=== PATIENT | male | born 1985 | race Hispanic/Latino ===

== ENCOUNTER 2018-08-10 01:24 | Observation (INO) | payer BC, SELFPAY ==
[2018-08-10 02:13] LABS: #Eosinphils 0.1 thou/uL (0.0-0.7); #Lymphocytes 2.8 thou/uL (1.20-3.40); #Monocytes 0.5 thou/uL (0.11-0.59); #Neutrophils 4.2 thou/uL (1.40-6.50); %Basophils 0.5 % (0.0-1.0); %Eosinophils 1.2 % (0.0-10.0); %Lymphocytes 36.8 % (21.0-51.0); %Monocytes 6.6 % (0.0-10.0); %Neutrophils 54.8 % (42.0-75.0); Hemoglobin 15.6 g/dL (14.0-18.0); Mean Corpuscular HGB CONC 34.7 g/dL (32.0-36.0); Mean Corpuscular Hemoglobin 28.9 pg (27.0-31.0); Mean Corpuscular Volume 83.2 fL (78.0-98.0); Mean Platelet Volume 6.9 fL (7.4-10.4); Platelet Count 336 thou/uL (130-400); Red Blood Cell (RBC) Count 5.41 mill/uL (4.70-6.10); White Blood Cell (WBC) Count 7.6 thou/uL (4.8-10.8)
[2018-08-10 02:31] LABS: ALT (SGPT) 68 U/L (8-55); AST (SGOT) 39 U/L (5-34); Albumin 4.6 g/dL (3.5-5.0); Alkaline Phosphatase 56 U/L (40-150); Bilirubin, Direct 0.3 mg/dL (0.1-0.3); Bilirubin, Total 0.8 mg/dL (0.2-1.2); Protein, Total 8.9 g/dL (6.0-8.3)
[2018-08-10 02:32] LABS: ALT (SGPT) 68 U/L (8-55); AST (SGOT) 39 U/L (5-34); Albumin 4.6 g/dL (3.5-5.0); Alkaline Phosphatase 57 U/L (40-150); Anion Gap 14 mmol/L (10-20); BUN (Urea Nitrogen) 18 mg/dL (8.9-20.6); Bilirubin, Total 0.8 mg/dL (0.2-1.2); Calc. Creatinine Clearance 0 mL/min (70-130); Calcium 10.2 mg/dL (7.8-10.44); Carbon Dioxide 25 mmol/L (22-29); Chloride 98 mmol/L (98-107); Estimated GFR-MDRD Greater than 90; Globulin 4.3 g/dL (2.4-3.5); Glucose 224 mg/dL (70-105); Protein, Total 8.9 g/dL (6.0-8.3); Sodium 133 mmol/L (136-145)
[2018-08-10 02:37] LABS: CKMB 0.5 ng/mL (0-6.6); Troponin I Less than 0.010 ng/mL (< 0.028)
[2018-08-10] MEDS ORDERED: Lidocaine Viscous Sol 2% 15 ml UD Cup ONE (02:38)
[2018-08-10] MEDS ORDERED: Mag-Al 1200 mg/1200 mg/30 ML UDCUP ONE (02:38)
[2018-08-10] MEDS ORDERED: Pantoprazole 40 MG VIAL ONE (02:38)
[2018-08-10 03:32] LABS: Acetaminophen Less than 6.0 mcg/mL (10.0-30.0); Alcohol Less than 10 mg/dL (Less than 10); Salicylate Less than 8.0 mg/dL (15.0-30.0)
[2018-08-10 05:32] LABS: Troponin I Less than 0.010 ng/mL (< 0.028)
[2018-08-10] MEDS ORDERED: Ketorolac Tromethamine 30 MG/ML VIAL ONE (06:06)
[2018-08-10] MEDS ORDERED: Iopamidol 300 61% 100 ML VIAL FS ONE (08:03)
[2018-08-10] MEDS ORDERED: HumaLOG 300 UNITS/3 ML VIAL SC PRN (11:14)
[2018-08-10] MEDS ORDERED: Nitroglycerin 0.4 MG TAB (25 Tab Bottle) SL PRN (11:14)
[2018-08-10] MEDS ORDERED: Dextrose 5% in Water 1,000 ML IV PRN (11:14)
[2018-08-10] MEDS ORDERED: Dextrose 50% Abboject 50 ML SYRINGE IVP PRN (11:14)
--- NOTE | 2018-08-10 11:23 | HP ---
PRIMARY CARE PROVIDER: Dr. David Mao in [place], [place] at [facility]. CHIEF COMPLAINT: Chest pain. HISTORY OF PRESENT ILLNESS: Mr. Dowling is a pleasant 33-year-old gentleman who was seen at [facility] on 08/10/2018. He reports that over the last week, he has had chest pain. He describes it as across his chest, henok p, 10/10 at its worst, accompanied by shortness of breath, also worse with deep breathing, not accomp anied by nausea, vomiting or lightheadedness. He denies having previous episodes of chest pain. He denies any cough, fevers or chills. He came to the emergency room because of ongoing chest pain. Please note that computer systems are down at the hospital at this time and I am unable to access mos t of his labs and old medical records. REVIEW OF SYSTEMS: All other systems reviewed and found to be negative. PAST MEDICAL HISTORY: Diabetes mellitus type 1, HIV infection, hypertension, syphilis, cirrhosis, an d hepatitis C. PAST SURGICAL HISTORY: Appendectomy. SOCIAL HISTORY: No history of tobacco use, alcohol use or recreational drug use. FAMILY HISTORY: Coronary artery disease in his mother. ALLERGIES: No known drug allergies. CURRENT MEDICATIONS: Doses need to be clarified, but these include Zetia, amlodipine, gabapentin, an d antiretroviral medications. PHYSICAL EXAMINATION: GENERAL: On examination, Mr. Dowling is awake and alert, not in acute distress. VITAL SIGNS: He is afebrile. Blood pressure is 119/69, pulse 84, respiratory rate 18, and oxygen sa turation 97% on room air. EYES: No scleral icterus. No conjunctival pallor. ENT: Moist mucosal membranes, no oropharyngeal erythema or exudates. NECK: Supple, nontender, trachea is midline. RESPIRATORY: Accessory muscles of breathing are not active. Chest wall movements are symmetric bila terally. LUNGS: Clear to auscultation without wheeze, rhonchi or crepitations. CARDIOVASCULAR: S1 and S2 are heard, regular. Peripheral pulses are palpable. No carotid bruit, no pericardial rub. ABDOMEN: Soft, nontender, bowel sounds heard, no hepatomegaly, no splenomegaly. NEUROLOGIC: Cranial nerves II-XII intact. Deep tendon reflexes are 2+. MUSCULOSKELETAL: Power is 5/5 in all 4 extremities. SKIN: Multiple tattoos. LYMPHATIC: No cervical lymphadenopathy. PSYCHIATRIC: Normal mood, normal affect. The patient is oriented to person, place, and time. IMAGING DATA AND LABORATORY DATA: Mr. Dowling's labs and investigations were reviewed. He had an elliott ctrocardiogram, which showed normal sinus rhythm, no ST changes to suggest an acute coronary syndrome . He also had a chest x-ray, which I am unable to access at this time. He reportedly had a negative troponin I, AST 39, ALT 68. The remaining labs are not available at this time. He also had right u pper quadrant ultrasound, which showed moderate hydronephrosis of the lower half of the left kidney. He also had noncontrast CT scan of abdomen and pelvis, which showed moderate hydronephrosis and hydr oureter on the right. He also had rectal thickening, radiologist recommends a clinical correlation. Radiologist also recommends follow up with contrast material if indicated. ASSESSMENT AND PLAN: Mr. Dowling is a pleasant 33-year-old gentleman who was seen at [facility] on 08/10/2018. His problem list includes: 1. Chest pain: Etiology unclear at this time, he is currently awaiting a nuclear stress test. We w ill also check D-dimer to rule out pulmonary embolism. Further management depending on outcome of th is test. 2. Hydronephrosis: We will consult Urology Service for opinion and help with further management. 3. Human immunodeficiency virus infection: We will resume retroviral medications once clarified. 4. Diabetes mellitus type 1: We will continue insulin and start Accu-Cheks as well as insulin slidi ng scale. 5. Hypertension: We will monitor vital signs and titrate antihypertensives as needed. 6. Rectal thickening: We will consult GI Service for opinion. Many thanks for allowing me to participate in your patient's care. Please feel free to contact me wi th any questions or concerns. LEVEL OF RISK: Moderate. LEVEL OF COMPLEXITY: Moderate.
--- NOTE | 2018-08-10 11:42 | ULT ---
PRELIMINARY REPORT/[facility]/EMERGENTY AFTER-HOURS PROCEDURE US Abdomen Limited, Right Upper Quadrant EXAM DATE/TIME: 08/10/2018 3:21 AM CLINICAL HISTORY: 33 years old, male; Pain and signs and symptoms; Other: Lower back pain, difficulty urinating; Abdomi nal pain; Other: Epigastric and lower back pain TECHNIQUE: Real-time ultrasound of the abdomen with image documentation. Examination is focused on the right upper quadrant. COMPARISON: No relevant prior studies available. FINDINGS: Liver: Normal. No masses. Gallbladder: Normal contracted gallbladder. Common bile duct: Normal. No stones. No dilation. Pancreas: Visualized pancreas is unremarkable. Right kidney: Normal. No mass. No hydronephrosis. Left kidney: Moderate hydronephrosis of the lower half of the left kidney. IMPRESSION: Moderate hydronephrosis of the lower half of the left kidney. Thank you for allowing us to participate in the care of your patient. Dictated and Authenticated by: Ian Perez MD 08/10/2018 4:33 AM Central Time ([place] & [place]) GALLBLADDER ULTRASOUND: History: Epigastric pain. Elevated LFTs. Comparison: 06-06-16 FINDINGS: This report is in agreement with the preliminary report by [facility]. There is moderate right sided hydrone phrosis. Gallbladder is contracted. No evidence of cholelithiasis or cholecystitis. POS: [facility]
--- NOTE | 2018-08-10 11:44 | CT ---
PRELIMINARY REPORT/[facility]/EMERGENTY AFTER-HOURS PROCEDURE CT Abdomen and Pelvis Without Intravenous Contrast EXAM DATE/TIME: 08/10/2018 5:42 AM CLINICAL HISTORY: 33 years old, male; Pain; Other: Back pain; Patient HX: Er 2; PT reports back pain for the past 2-3 d ays. Eval for left hydronephrosis. TECHNIQUE: Axial computed tomography images of the abdomen and pelvis without intravenous contrast. Coronal reformatted images were created and reviewed. COMPARISON: US Gallbladder RUQ 08/10/2018 3:21 AM FINDINGS: Lower thorax: Subtle atelectasis right lung base with a somewhat nodular configuration. Consider foll owup. ABDOMEN: Liver: Normal. No mass. Gallbladder and bile ducts: Normal. No calcified stones. No ductal dilation. Pancreas: Normal. No ductal dilation. Spleen: Normal. No splenomegaly. Adrenals: Normal. No mass. Kidneys and ureters: Moderate hydronephrosis and hydroureter on the right. Suspected partially duplic ated collecting system. Possible tiny calculus at the right ureterovesical junction. See image #90 se parminder 601 and image #75 series 2. Stomach and bowel: Thickening of the rectum. Correlate clinically. -Moderate amount stool is present throughout the large bowel. Appendix: The appendix is not visualized. PELVIS: Bladder: Unremarkable as visualized. Reproductive: Unremarkable as visualized. ABDOMEN and PELVIS: Intraperitoneal space: Normal. No free air. No significant fluid collection. Bones/joints: No acute fracture. No dislocation. Soft tissues: Unremarkable. Vasculature: Normal. No abdominal aortic aneurysm. Lymph nodes: Numerous small subcentimeter lymph nodes in the aortocaval region IMPRESSION: 1. Moderate hydronephrosis and hydroureter on the right. Suspected partially duplicated collecting sy stem. Possible tiny calculus at the right ureterovesical junction.See image #90 series 601 and image #75 series 2. 2. Thickening of the rectum. Correlate clinically. Consider followup with contrast material if indica rickie. Thank you for allowing us to participate in the care of your patient. Dictated and Authenticated by: Zach Zhao MD 08/10/2018 6:37 AM Central Time ([place] & [place]) ABDOMEN CT WITHOUT CONTRAST: PELVIS CT WITHOUT CONTRAST: HISTORY: Left-sided hydronephrosis. Back pain for two to three days. COMPARISON: 06/04/2018 TECHNIQUE: Abdomen and pelvis CT is performed without IV or oral contrast. Reformatted images are submitted for interpretation. FINDINGS: There is no evidence of left-sided obstructive uropathy. However, there is moderate right-sided hydr onephrosis and hydroureter. 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 A definite obstruc ting calculus is not appreciated. The possibility of a punctate calculus in the right ureterovesical junction is reported in the preliminary report by [facility]. Evaluation is somewhat limited in this regio n due to beam attenuation. Of note, the previous CT also had right-sided hydronephrosis. The right ureter was decompressed previously. A retrograde IVP is recommended. There is mucosal thickening of the rectum. Direct visualization with sigmoidoscopy/colonoscopy is recommended. This report is in agreement with the preliminary report by [facility]. POS: [facility]
[2018-08-10 12:01] LABS: Amphetamine Not Detected (NotDetected); Barbiturates Screen Not Detected (NotDetected); Benzodiazepine Screen Not Detected (NotDetected); Cocaine Metabolite Screen Not Detected (NotDetected); Medtox Control Line Valid? VALID (VALID); Medtox Reader # READER 1; Methadone Not Detected (NotDetected); Methamphetamine Not Detected (NotDetected); Opiate Screen Not Detected (NotDetected); Oxycodone Screen Not Detected (NotDetected); Phencyclidine (PCP) Not Detected (NotDetected); THC/Cannabinoid Screen Not Detected (NotDetected); Tricyclic Screen Not Detected (NotDetected)
[2018-08-10 12:12] LABS: Troponin I Less than 0.010 ng/mL (< 0.028)
[2018-08-10] MEDS: Sodium Chloride 0.9% 1,000 ML IV SCH ×2 (12:39→23:22)
[2018-08-10 12:59] LABS: #Monocytes 0.6 thou/uL (0.11-0.59); #Neutrophils 6.2 thou/uL (1.40-6.50); %Basophils 0.4 % (0.0-1.0); %Eosinophils 0.3 % (0.0-10.0); %Lymphocytes 30.5 % (21.0-51.0); %Monocytes 5.8 % (0.0-10.0); Hemoglobin 15.5 g/dL (14.0-18.0); Mean Corpuscular HGB CONC 36.1 g/dL (32.0-36.0); Mean Corpuscular Hemoglobin 30.2 pg (27.0-31.0); Mean Corpuscular Volume 83.7 fL (78.0-98.0); Platelet Count 343 thou/uL (130-400); RBC Distribution Width 12.1 % (11.5-14.5); Red Blood Cell (RBC) Count 5.12 mill/uL (4.70-6.10); White Blood Cell (WBC) Count 9.9 thou/uL (4.8-10.8)
[2018-08-10 13:12] LABS: Glucose Accucheck Confirmation 83 mg/dl (70-105)
[2018-08-10 13:19] LABS: Anion Gap 13 mmol/L (10-20); BUN (Urea Nitrogen) 15 mg/dL (8.9-20.6); Calc. Creatinine Clearance 0 mL/min (70-130); Calcium 9.6 mg/dL (7.8-10.44); Carbon Dioxide 25 mmol/L (22-29); Chloride 103 mmol/L (98-107); Estimated GFR-MDRD Greater than 90; Glucose 82 mg/dL (70-105); Potassium 3.2 mmol/L (3.5-5.1); Sodium 138 mmol/L (136-145)
[2018-08-10 13:28] VITALS: BMI 23.6
--- NOTE | 2018-08-10 13:40 | CON ---
DATE OF CONSULTATION: 08/10/2018 REASON FOR CONSULT: Right hydronephrosis. HISTORY OF PRESENT ILLNESS: Mr. Dowling is a 33-year-old male with history of HIV, remote history of syphilis, hepatitis C, liver cirrhosis who presented for evaluation of chest pain, sharp, radiating to his upper back with shortness of breath. He also related vague epigastric discomfort. He denies prior history of flank pain, dysuria or gross hematuria of concern. Relates occasional hesitancy. Upon my request, we did check and for a postvoid residual. He voided approximately 400-500 mL of concentrated yellow urine, postvoid residual is 0. CT of the abdomen and pelvis was obtained by primary service on presentation without IV contrast dating 08/10/2018 demonstrating moderate right hydronephrosis with duplicated ureter. The hydronephrotic component appears to be chronic in nature as it was visualized on a lumbar x-ray dating back a few years. He did have a prior CT scan dated 2015 which demonstrated right hydronephrosis. However, the ureter itself was not significantly distended. The patient denies history of kidney stones. Upon our consultation today he related that of vague right lower back pain began today. Denies a fever. PAST MEDICAL HISTORY: Include diabetes, HIV, hypertension, history of syphilis , cirrhosis, hepatitis C. PAST SURGICAL HISTORY: Appendectomy. 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 FAMILY HISTORY: Positive for coronary artery disease. ALLERGIES: No known drug allergies. HOME MEDICATIONS: Include Zytiga, amlodipine, gabapentin, and antiviral medications. He has previously seen Dr. Rubio, Infectious disease. PHYSICAL EXAMINATION: VITAL SIGNS: Stable. He is afebrile. GENERAL: The patient appears to be comfortable. HEENT: Grossly unremarkable. HEART: Regular rate. LUNGS: Clear. ABDOMEN: Soft. There is no gross rigidity, no rebound. No significant CVA tenderness is appreciated on physical exam. GENITOURINARY: Demonstrates circumcised phallus, meatus with no discharge. Testes are descended with no evidence of intratesticular mass. RECTAL: LAURY is deferred. EXTREMITIES: No cyanosis, clubbing or edema. Skin has multiple skin tattoos. PERTINENT LABS AND IMAGING: White count 7, hemoglobin 15, platelets 236, creatinine 0.9. Elevated liver function tests. Urine tox screen is grossly unremarkable. A formal urinalysis and culture was not obtained on this admission. CT of the abdomen and pelvis dated 05/2016 demonstrates dilation of the right lower pole collecting system, duplicated right ureter. Mild periaortic aortocaval lymphadenopathy not pathologically enlarged. The CT was compared to CT of the lumbar spine in 2010 demonstrating a similar right dilation of the collecting system. CT stone protocol 08/10/2018 demonstrates moderate hydronephrosis with hydroureter on the right. Partially duplicated right collecting system. I did review the CT myself demonstrating duplicated ureter dilated to the level of the mid SI joint. Bladder is distended up to this region, distal ureter is difficult to visualize. Possibility of a tiny calculus at the right UVJ, however, formal read by Dr. Jean Marie Reeves demonstrates no obvious definitive stone is appreciated. Mucosal thickening of the rectum. Colonoscopy was advised. IMPRESSION/PLAN: 1. Mr. Dowling is a 33-year-old male, Liberian speaking, with history of hepatitis C, HIV, syphilis, diabetes who presents with vague discomfort of chest pain, epigastric discomfort, new complaint on consultation of right lower back pain. 2. CT demonstrating chronically dilated right collecting system, dating back to 2010, recent CT demonstrates a component of dilated ureters as well. Etiology is unclear. We did check a postvoid residual at bedside. The patient is not in retention. PVR zero. A formal urinalysis microscopy will be obtained. I will obtain a followup IVP. Pending review of IVP I discussed with patient regarding cystoscopy, retrograde studies, possible stent if indicated. MTDD
[2018-08-10] MEDS ORDERED: Dextrose 50% Abboject 50 ML SYRINGE ONE (14:06)
--- NOTE | 2018-08-10 15:59 | RAD ---
IVP: 08/10/18 HISTORY: Duplicated ureters. Hydronephrosis. COMPARISON: CT exam from 06/06/16. FINDINGS: Accounting Practice Manager KUB shows a nonspecific bowel gas pattern. Phleboliths project over the pelvis. Early images show bilateral and symmetric nephrograms. There is duplication of each renal collecting system and the proximal left ureter and the proximal to mid right ureter. Right ureters join at the l evel of the lower sacrum. There is moderate distention of the calyces of the inferior pole right renal collecting system. The a ssociated renal pelvis is not significantly dilated. Ureter is decompressed. Left renal collecting s ystem, ureter and urinary bladder are unremarkable. Postvoid residual is minimal. IMPRESSION: 1. Partial duplication of each ureter. 2. Caliectasis inferior pole right renal collecting system. Cause is not evident. There is no si gnificant obstruction. Findings were called to Dr. Avelar at 1525 hours. Code CR POS: [facility]
[2018-08-10] MEDS ORDERED: Gabapentin 300 MG CAP PO PRN (18:17)
[2018-08-10] MEDS: Acetaminophen 325 MG TAB PO PRN (18:32)
[2018-08-10 19:26] LABS: Bilirubin Negative (Negative); Blood, Urine Negative (Negative); Clarity CLEAR (Clear); Glucose, Urine (Dipstick) 250 mg/dL (Negative); Leukocyte Negative (Negative); Nitrite Negative (Negative); Protein, Urine (Dipstick) Trace mg/dL (Neg-Trace); pH, Urine 5.5 (5.0-9.0)
[2018-08-10 19:27] LABS: Bacteria/HPF None Seen HPF (None Seen); Hyaline Casts/LPF 0-3 HYALINE CAST LPF (0-3 Hyaline); Pathc Cast-AUWi Flag 0.14 (0-2.49); RBC/HPF 0-3 HPF (0-3); Squamous Epithelial None Seen HPF (0-3); WBC/HPF 0-3 HPF (0-3)
[2018-08-10 19:28] LABS: Specific Gravity, Urine Greater than 1.060 (1.002-1.036)
[2018-08-10] MEDS: Insulin NPH/Reg Insulin Hm 300 UNITS/3 ML VIAL SC SCH (20:00)
[2018-08-10] MEDS ORDERED: Insulin Glargine 75 UNITS in Pre-Filled Syringe 1 EACH SC SCH (21:00)
[2018-08-11] MEDS: Insulin NPH/Reg Insulin Hm 300 UNITS/3 ML VIAL SC SCH ×2 (00:19→08:23)
--- NOTE | 2018-08-11 01:57 | CON ---
DATE OF CONSULTATION: 08/10/2018 REFERRING PHYSICIAN: Dr. Darrius Barreto. REASON FOR CONSULTATION: Abdominal pain and abnormal CAT scan of abdomen showing thickening of the r ectal wall. HISTORY OF PRESENT ILLNESS: Mr. Nj Dowling is a 33-year-old Latin-S[place]i male seen in the ER wi th abdominal pain. Apparently, he has been having abdominal pain over the last several days. The pa in has actually come across the upper abdomen and EPS periumbilical area. The patient came to the ER and had abdominal CAT scan. Abdominal CAT scan showed mild hydronephrosis on both sides and also th ickening of the rectal vault. Interestingly, he has no GI symptoms. His pain is somewhat atypical. He denies any rectal bleeding, diarrhea. His bowel movements are regular. He denies any dysuria, h ematuria or frequent urination. The patient has no nausea, no vomiting. There is no history fever o r chills. The patient has a history of positive HIV and has seen a doctor in [place]. He also has p ositive HCV and is planning to take treatment for the hepatitis C. The patient is homosexual. The p atient also has history of type 2 diabetes mellitus and hypertension. He has been told to have liver cirrhosis by a Doctor in [place] sometime back. He is drinking alcohol heavily, but he has quit dri nking alcohol 1 year ago completely. He has no history of drug use. He has no relevant history. ALLERGIES: None. SOCIAL HISTORY: The patient does not smoke. He is drinking alcohol until 1 year ago and he stopped drinking completely because of his liver cirrhosis. SURGERIES: Status post appendectomy. FAMILY HISTORY: Father colon cancer, metastatic lung cancer. Mother with coronary artery disease. MEDICATIONS: Zetia, amlodipine, gabapentin, antiviral medication for HIV. REVIEW OF SYSTEMS: Constitutional: No fever, no weight loss. His energy level is good. Respirator y: No history of chronic cough, hemoptysis, dyspnea. Cardiovascular: No chest pain, no palpitation , no exertional dyspnea, orthopnea or PND. Gastrointestinal: Abdominal pain, no nausea, no vomiting , no fever, no diarrhea, no rectal bleeding. Genitourinary: No other relevant symptoms. Musculoske letal: Unremarkable. Endocrine: Unremarkable. Hematological: Unremarkable. PHYSICAL EXAMINATION: GENERAL: Patient is thin built, appears very comfortable. He is awake, alert, oriented to time, francisco ce and person. VITAL SIGNS: Stable. Afebrile, pulse 81, blood pressure 124/66. HEENT: Conjunctivae clear. NECK: Supple. No adenitis or thyromegaly noted. CARDIOVASCULAR: First and second heart sounds normal. LUNGS: Clear to auscultation. ABDOMEN: Soft to palpate. No organomegaly. He is minimally tender over the epigastric periumbilica l area. There is no rebound or guarding. Bowel sounds normal. EXTREMITIES: No edema. LABORATORY DATA: CBC shows WBC 9900, hemoglobin 15.5, hematocrit 42.8, platelet count is 343,000, po lymorphs 63, lymphocytes 30, monocytes 5. His chemistry panel, electrolytes are normal except for po tassium 3.2, calcium is 9.6. He has an abdominal sonogram and abdominal CAT scan. The sonogram show s moderate hydronephrosis of the left kidney. No kidney stones seen. He has abdominal sonogram subs equently. The sonogram again shows mild hydronephrosis on the right side also found to have thickeni ng of the rectal wall. IVP done subsequently. The IVP shows duplication of the collecting sys tem and proximal left ureter and proximal right ureter. There is moderate distention of the callus o f the right lower renal pole. CLINICAL IMPRESSION: A 33-year-old male with positive human immunodeficiency virus, positive hepatit is C virus, presents with some abdominal pain and was found to have abnormal sonogram and CAT scan sh owing dilation of the left ureter. He has seen by Dr. Avelar for urology. When I spoke to him about his thickening rectal vault, he was not very happy to really have anything done. He says he f eels fine and had no rectal bleeding, no diarrhea and bowels are regular. At the present time, I jose g l defer any workup as he has no specific symptoms and thickening of rectal wall is very nonspec ific. He is awaiting urology evaluation. PLAN: I will see him again tomorrow and if he is agreeable, I might recommend a sigmoidoscopy.
[2018-08-11] MEDS: Sodium Chloride 0.9% 1,000 ML IV SCH ×2 (05:56→12:27)
[2018-08-11 06:00] LABS: Anion Gap 10 mmol/L (10-20); BUN (Urea Nitrogen) 13 mg/dL (8.9-20.6); Calc. Creatinine Clearance 153 mL/min (70-130); Calcium 9.2 mg/dL (7.8-10.44); Carbon Dioxide 27 mmol/L (22-29); Chloride 107 mmol/L (98-107); Estimated GFR-MDRD Greater than 90; Glucose 137 mg/dL (70-105); Potassium 3.9 mmol/L (3.5-5.1); Sodium 140 mmol/L (136-145)
[2018-08-11] MEDS: Acetaminophen 325 MG TAB PO PRN (06:01)
[2018-08-11] MEDS ORDERED: Iopamidol 370 76% 100 ML VIAL ONE (08:11)
[2018-08-11] MEDS ORDERED: Aspirin 325 MG TAB PO SCH (09:00)
[2018-08-11] MEDS ORDERED: Amlodipine 10 MG TAB PO SCH (09:00)
[2018-08-11] MEDS ORDERED: Ezetimibe 10 MG TAB PO SCH (09:00)
--- NOTE | 2018-08-11 09:06 | PRG ---
DATE OF SERVICE: 08/11/2018 SUBJECTIVE: The patient is resting comfortably. Regarding his lower back pain , it is located at the level of the mid lower back, reproducible, it does not radiate, appears to be musculoskeletal in etiology. It is not significant for flank pain. PHYSICAL EXAMINATION: VITAL SIGNS: Stable. He is afebrile, 98.5, 73, 118, 60, 98%. I's and O's are 2916 in, 1950 out. ABDOMEN: Soft, nontender, nondistended. No CVA tenderness is appreciated. GENITOURINARY: Prior assessment with no significant postvoid residual, empties complete, clear dilute urine. PERTINENT LABORATORY DATA: Creatinine is stable today at 0.79. Urinalysis demonstrates 250 of glucose, no evidence of microscopic or gross hematuria. No bacteria. Culture pending. IVP done yesterday, which I reviewed with the radiologist myself, bilateral duplicated ureters. No evidence of functional obstruction. There was chronic dilation of the right lower pole, the duplicated right ureter joins to a common ureter at the level of mid to inferior sacrum, left duplicated ureter to the level of L2-L3 level with common ureter distally. IMPRESSION AND PLAN: Mr. Dowling is a 33-year-old male with history of hepatitis , HIV, who presented for epigastric chest pain. Cardiology workup is in progress with echo, CTA today. 1. History of right chronically dilated kidney appearance dating back to 2010, IVP demonstrated no evidence of functional obstruction, bilateral duplicated ureters are noted. No further surgical urologic intervention is warranted. The patient has renal function that is within normal limits with no evidence of functional obstruction would observe. From a urologic perspective, the patient may be discharged upon Cardiology workup. May follow up with FELIX p.r.n. will sign off. call if any questions. SILVESTRE
[2018-08-11 09:14] LABS: #Basophils 0.1 thou/uL (0.0-0.2); #Eosinphils 0.1 thou/uL (0.0-0.7); #Lymphocytes 2.9 thou/uL (1.20-3.40); #Monocytes 0.7 thou/uL (0.11-0.59); #Neutrophils 3.2 thou/uL (1.40-6.50); %Eosinophils 1.1 % (0.0-10.0); %Lymphocytes 42.1 % (21.0-51.0); %Neutrophils 45.9 % (42.0-75.0); Hemoglobin 14.4 g/dL (14.0-18.0); Mean Corpuscular HGB CONC 35.3 g/dL (32.0-36.0); Mean Corpuscular Hemoglobin 30.2 pg (27.0-31.0); Mean Corpuscular Volume 85.5 fL (78.0-98.0); Mean Platelet Volume 7.2 fL (7.4-10.4); Platelet Count 293 thou/uL (130-400); RBC Distribution Width 12.3 % (11.5-14.5); Red Blood Cell (RBC) Count 4.79 mill/uL (4.70-6.10); White Blood Cell (WBC) Count 6.9 thou/uL (4.8-10.8)
--- NOTE | 2018-08-11 12:23 | NM ---
CARDIAC SPECT: CLINICAL HISTORY: 33-year-old male with chest pain, hypertension, diabetes, and family history of coronary artery disea se. TECHNIQUE: A myocardial perfusion scan was performed using the single isotope one day protocol with technetium-9 9m sestamibi. 10 mCi were injected intravenously for the rest exam followed by 29 mCi for the stress exam. Exercise stress was monitored and interpreted by Pippa Sims. FINDINGS: Homogeneous tracer distribution is seen in the myocardial segments on stress and rest images without fixed or reversible defects. GATED SPECT LVEF: 56%. WALL MOTION EXAM: Normal. IMPRESSION: Normal myocardial perfusion scan. POS: [facility]
--- NOTE | 2018-08-11 15:00 | CT ---
CT ANGIOGRAM THORAX WITH IV CONTRAST AND 3D RECONSTRUCTIONS: Date: 08-11-18 History: Chest pain and elevated D-Dimer. Comparison: None available. FINDINGS: No filling defects are seen within the central or segmental pulmonary arteries to suggest a pulmonary embolus. The thoracic aorta is normal in caliber without evidence of an aortic dissection. There is no evidence of lymphadenopathy. There is linear scarring versus atelectasis at the right lung base. The lungs are otherwise clear. No discrete pulmonary nodule or mass is identified. There is a mildly prominent lymph node seen posteri or to the proximal body of the pancreas measuring 1.4 cm short axis dimension with incomplete visuali zation of a few left paracaval lymph nodes. These findings were present on prior study of 08-10-18, as well as the study on 06-06-16 and not significantly changed. IMPRESSION: 1. No CT evidence of a pulmonary embolus involving the central or segmental pulmonary arteries. 2. Nonspecific mildly prominent lymph nodes in the upper abdomen. POS: [facility]
[2018-08-11 15:34] VITALS: BP 128/67; TEMP 98.3
--- NOTE | 2018-08-11 16:55 | DIS ---
DATE OF DISCHARGE: 08/11/2018 DISCHARGE DISPOSITION: Home. FOLLOWUP: 1. Follow up with primary care physician, Dr. David Mao in [place] in 1 week. 2. Follow up with primary senior ui ux developer in [place] or Dr. Thornton. 3. Follow up with Urology as outpatient. ALLERGIES: No known drug allergies. The patient was seen and examined on the day of discharge, denies any new complaints. BRIEF HOSPITAL COURSE: The patient is a 33-year-old male with hypertension, HIV, and diabetes mellit us type 1, presented to the hospital with chest discomfort. Please refer to the history and physical for further details. The patient was admitted to the hospital with a diagnosis of chest discomfort, rule out acute coronar y syndrome. Serial troponins were negative. CT angiogram of the chest was also negative for pulmona ry embolism. He underwent a cardiolite stress test that was negative for reversible ischemia. Eject ion fraction was 56% without any wall motion abnormalities. In the emergency room, the patient underwent CT scan of the abdomen and pelvis stone protocol that sh owed moderate hydronephrosis and hydroureter on the right. There was also some thickening of the rec berna. A right upper quadrant ultrasound showed contracted gallbladder without any evidence of cholecy stitis or cholelithiasis. Patient was evaluated by Gastroenterology as well as Urology. He underwen t an IV pyelogram that showed partial duplication of each ureter without significant obstruction. Th e patient has been cleared by Urology for discharge. A sigmoidoscopy was offered by Gastroenterology ; however, the patient declined. He was advised to follow up with Gastroenterology as outpatient. FINAL DIAGNOSES: 1. Atypical chest pain, acute coronary syndrome ruled out. 2. Negative Cardiolite stress test. 3. Chronically bilateral duplicated ureter with hydronephrosis. 4. Thickening of the rectum of unclear etiology. 5. Chronic human immunodeficiency virus infection. 6. Diabetes mellitus type 1. 7. Hypertension. 8. Elevated D-dimer with negative CT angiogram of the chest. 9. Abnormal liver function tests of unclear etiology, probably secondary to chronic hepatitis C. 10. Questionable cirrhosis. Plan of care was discussed with the patient in detail. He stated understanding.
--- NOTE | 2018-08-21 13:16 | EKG ---
Test Reason : CHESTPAIN Blood Pressure : / mmHG Vent. Rate : 087 BPM Atrial Rate : 087 BPM P-R Int : 136 ms QRS Dur : 080 ms QT Int : 364 ms P-R-T Axes : 020 065 031 degrees QTc Int : 438 ms Normal sinus rhythm Normal ECG Confirmed by LEIDA MICHEL ([id number]), non linear editor GIA CALDWELL ([id number]) on 08/21/2018 1:15:56 PM Referred By: ANAND Confirmed By:LEIDA MICHEL
== END 2018-08-11 16:55 | disposition home or self-care (01) ==
LOC: ERS 01:24 → 2SW 06:10
PROVIDERS: ADMIT Internal Medicine; ATTEND Internal Medicine
DX: R07.89 Other chest pain (principal); Z21 Asymptomatic human immunodeficiency virus [HIV] infection status; E10.9 Type 1 diabetes mellitus without complications; I10 Essential (primary) hypertension; Z79.899 Other long term (current) drug therapy
CPT/HCPCS: 36415; 36416; 71275; 74176; 74410; 76705; 78452; 80048; 80053; 80306; 80307; 81001; 82553; 84484; 85025; 85379; 86140; 87086; 93005; 93017; 96361; 96374; 96375; 96376; 99406; A9500; C9113; G0378; J1885

== ENCOUNTER 2018-09-06 22:04 | Emergency (ER) | payer BC ==
--- NOTE | 2018-09-06 23:16 | RAD ---
PA AND LATERAL VIEWS CHEST: HISTORY: Cough. COMPARISON: 06/06/2016 FINDINGS: The heart size is normal. The lungs are well expanded without focal areas of consolidation, pneumoth oraces, or pleural effusions. There are mild degenerative changes in the spine. IMPRESSION: No radiographic evidence of acute cardiopulmonary process. POS: [facility]
[2018-09-06 23:17] LABS: #Basophils 0.1 thou/uL (0.0-0.2); #Lymphocytes 3.2 thou/uL (1.20-3.40); #Monocytes 0.6 thou/uL (0.11-0.59); #Neutrophils 3.8 thou/uL (1.40-6.50); %Basophils 0.7 % (0.0-1.0); %Eosinophils 0.6 % (0.0-10.0); %Lymphocytes 41.6 % (21.0-51.0); %Monocytes 7.4 % (0.0-10.0); %Neutrophils 49.7 % (42.0-75.0); Hemoglobin 17.8 g/dL (14.0-18.0); Mean Corpuscular HGB CONC 35.2 g/dL (32.0-36.0); Mean Corpuscular Hemoglobin 29.6 pg (27.0-31.0); Mean Corpuscular Volume 84.1 fL (78.0-98.0); Mean Platelet Volume 7.8 fL (7.4-10.4); Platelet Count 297 thou/uL (130-400); Red Blood Cell (RBC) Count 6.01 mill/uL (4.70-6.10); White Blood Cell (WBC) Count 7.6 thou/uL (4.8-10.8)
[2018-09-06 23:38] LABS: ALT (SGPT) 54 U/L (8-55); AST (SGOT) 25 U/L (5-34); Albumin 4.9 g/dL (3.5-5.0); Alkaline Phosphatase 45 U/L (40-150); Anion Gap 17 mmol/L (10-20); BUN (Urea Nitrogen) 18 mg/dL (8.9-20.6); Bilirubin, Total 1.9 mg/dL (0.2-1.2); Calc. Creatinine Clearance 0 mL/min (70-130); Calcium 10.8 mg/dL (7.8-10.44); Carbon Dioxide 27 mmol/L (22-29); Chloride 93 mmol/L (98-107); Estimated GFR-MDRD 80; Globulin 4.5 g/dL (2.4-3.5); Glucose 391 mg/dL (70-105); Lipase 29 U/L (8-78); Potassium 3.6 mmol/L (3.5-5.1); Protein, Total 9.4 g/dL (6.0-8.3); Sodium 133 mmol/L (136-145)
[2018-09-06 23:41] LABS: CKMB 0.9 ng/mL (0-6.6); Troponin I Less than 0.010 ng/mL (< 0.028)
[2018-09-07] MEDS ORDERED: hydrOXYzine 25 MG TAB ONE (00:52)
[2018-09-07] MEDS ORDERED: Ibuprofen 800 MG TAB ONE (00:52)
--- NOTE | 2018-09-07 08:46 | ULT ---
PRELIMINARY REPORT/[facility]/EMERGENTY AFTER-HOURS PROCEDURE US Abdomen Limited, Right Upper Quadrant EXAM DATE/TIME: 09/06/2018 11:56 PM CLINICAL HISTORY: Pain and signs and symptoms; Nausea and other: Constipation, weight loss; Abdominal pain; Epigastric; Patient HX: Epigastric pain, nausea, constipation x 2 wks, 20 lb weight loss in 1 month. ; Additional info: Pt. Stated taking 500 mg citlali asprin (4 each day) x 1 month for pain TECHNIQUE: Real-time ultrasound of the right upper quadrant with image documentation. COMPARISON: US Gallbladder RUQ 08/10/2018 3:21 AM, CT Stone Protocol 08/10/2018 5:42:51 AM FINDINGS: Liver: Unremarkable. No mass. No intrahepatic bile duct dilation. Gallbladder: Unremarkable. No gallstones. Common bile duct: Unremarkable as visualized. No stones. No dilation. Pancreas: Unremarkable as visualized. Right kidney: Partially duplicated right renal collecting system. Mild to moderate hydronephrosis of the lower pole moiety again demonstrated. No stones. IMPRESSION: Partially duplicated right renal collecting system. Mild to moderate hydronephrosis of the lower pole moiety again demonstrated. Thank you for allowing us to participate in the care of your patient. Dictated and Authenticated by: Lindsay Rodriguez MD 09/07/2018 1:58 AM Central Time ([place] & [place]) FINAL REPORT EMERGENCY AFTER HOURS RIGHT UPPER QUADRANT ULTRASOUND: Date: 09/06/18 HISTORY: Epigastric pain and constipation for 1 week. Nausea. 20 lb weight loss over last month. IMPRESSION: 1. No gallbladder calculi are seen. The common duct is normal in caliber, measuring 0.5 cm in diamet er. 2. Mild to moderate hydronephrosis lower pole moiety of duplicated right renal collecting system. Th is is stable from prior right upper quadrant ultrasound exam on 08/10/18, as well as CT abdomen and p [place] on 08/10/18. 3. Right upper quadrant ultrasound examination is unchanged when compared to prior exam on 08/10/18. Findings are in agreement with the preliminary report by Nydia. POS: [facility]
== END 2018-09-07 02:52 | disposition home or self-care (01) ==
LOC: ERS 22:04
DX: R10.13 Epigastric pain (principal); E10.9 Type 1 diabetes mellitus without complications; I10 Essential (primary) hypertension; Z21 Asymptomatic human immunodeficiency virus [HIV] infection status; K74.60 Unspecified cirrhosis of liver; F17.210 Nicotine dependence, cigarettes, uncomplicated; Z79.4 Long term (current) use of insulin; Z79.899 Other long term (current) drug therapy
CPT/HCPCS: 71046; 76705; 80053; 82553; 83690; 84484; 85025; 93005

== ENCOUNTER 2018-09-21 19:21 | Emergency (ER) | payer BC ==
[2018-09-21 20:12] LABS: #Lymphocytes 2.3 thou/uL (1.20-3.40); #Monocytes 0.5 thou/uL (0.11-0.59); #Neutrophils 4.6 thou/uL (1.40-6.50); %Basophils 0.4 % (0.0-1.0); %Eosinophils 0.6 % (0.0-10.0); %Lymphocytes 30.4 % (21.0-51.0); %Monocytes 7.2 % (0.0-10.0); %Neutrophils 61.4 % (42.0-75.0); Hemoglobin 17.5 g/dL (14.0-18.0); Mean Corpuscular HGB CONC 33.9 g/dL (32.0-36.0); Mean Corpuscular Hemoglobin 28.9 pg (27.0-31.0); Mean Corpuscular Volume 85.1 fL (78.0-98.0); Mean Platelet Volume 7.4 fL (7.4-10.4); Platelet Count 307 thou/uL (130-400); RBC Distribution Width 12.2 % (11.5-14.5); Red Blood Cell (RBC) Count 6.05 mill/uL (4.70-6.10); White Blood Cell (WBC) Count 7.6 thou/uL (4.8-10.8)
[2018-09-21 20:32] LABS: ALT (SGPT) 44 U/L (8-55); AST (SGOT) 23 U/L (5-34); Albumin 4.7 g/dL (3.5-5.0); Alkaline Phosphatase 40 U/L (40-150); Anion Gap 13 mmol/L (10-20); BUN (Urea Nitrogen) 17 mg/dL (8.9-20.6); Bilirubin, Total 1.5 mg/dL (0.2-1.2); Calc. Creatinine Clearance 0 mL/min (70-130); Calcium 10.6 mg/dL (7.8-10.44); Carbon Dioxide 30 mmol/L (22-29); Chloride 94 mmol/L (98-107); Estimated GFR-MDRD 67; Globulin 4.1 g/dL (2.4-3.5); Glucose 508 mg/dL (70-105); Potassium 4.4 mmol/L (3.5-5.1); Protein, Total 8.8 g/dL (6.0-8.3); Sodium 133 mmol/L (136-145)
[2018-09-21] MEDS ORDERED: Insulin Regular 300 UNITS/3 ML VIAL ONE (22:06)
[2018-09-21] MEDS ORDERED: Pantoprazole 80 MG, Admixture Fee 1 EACH in Sodium Chloride 0.9% 100 ML IVP SCH (22:15)
[2018-09-21 22:22] LABS: Bilirubin Negative (Negative); Blood, Urine Negative (Negative); Clarity CLEAR (Clear); Glucose, Urine (Dipstick) >=1000 mg/dL (Negative); Leukocyte Negative (Negative); Nitrite Negative (Negative); Protein, Urine (Dipstick) Trace mg/dL (Neg-Trace); Urobilinogen 0.2 mg/dL (0.2-1.0)
== END 2018-09-22 00:16 | disposition home or self-care (01) ==
LOC: ERS 19:21
DX: E10.65 Type 1 diabetes mellitus with hyperglycemia (principal); R10.9 Unspecified abdominal pain; I10 Essential (primary) hypertension; K74.69 Other cirrhosis of liver; Z79.4 Long term (current) use of insulin; Z79.899 Other long term (current) drug therapy
CPT/HCPCS: 36415; 36416; 80053; 81003; 82274; 83690; 85025; 96361; 96365; 96375; C9113; J1815; J7050

== ENCOUNTER 2018-12-20 05:38 | Inpatient (IN) | payer BC ==
[2018-12-20] MEDS ORDERED: Morphine 4 MG/ML VIAL ONE ×2 (06:19→13:57)
[2018-12-20] MEDS ORDERED: Ondansetron ODT 8 MG TAB ONE (06:19)
[2018-12-20] MEDS ORDERED: Ondansetron PF 4 MG/2 ML Vial ONE (06:20)
[2018-12-20 06:24] LABS: #Eosinphils 0.1 thou/uL (0.0-0.7); #Lymphocytes 2.1 thou/uL (1.20-3.40); #Monocytes 0.6 thou/uL (0.11-0.59); #Neutrophils 4.3 thou/uL (1.40-6.50); %Basophils 0.6 % (0.0-1.0); %Lymphocytes 29.1 % (21.0-51.0); %Monocytes 8.4 % (0.0-10.0); %Neutrophils 60.9 % (42.0-75.0); Mean Corpuscular HGB CONC 33.9 g/dL (32.0-36.0); Mean Corpuscular Hemoglobin 30.9 pg (27.0-31.0); Mean Corpuscular Volume 91.1 fL (78.0-98.0); Mean Platelet Volume 6.5 fL (7.4-10.4); Platelet Count 305 thou/uL (130-400); RBC Distribution Width 11.8 % (11.5-14.5); Red Blood Cell (RBC) Count 4.53 mill/uL (4.70-6.10); White Blood Cell (WBC) Count 7.1 thou/uL (4.8-10.8)
[2018-12-20 06:26] LABS: Bilirubin Negative (Negative); Blood, Urine Negative (Negative); Clarity CLEAR (Clear); Glucose, Urine (Dipstick) Negative (Negative); Leukocyte Negative (Negative); Nitrite Negative (Negative); Protein, Urine (Dipstick) Negative (Neg-Trace); Specific Gravity, Urine 1.024 (1.002-1.036)
[2018-12-20 06:30] LABS: INR-International Normal Ratio 0.9; PTT 27.9 SEC (22.9-36.1); Prothrombin Time 12.6 SEC (12.0-14.7)
[2018-12-20 07:00] LABS: ALT (SGPT) 121 U/L (8-55); AST (SGOT) 78 U/L (5-34); Albumin 4.1 g/dL (3.5-5.0); Alkaline Phosphatase 46 U/L (40-150); Anion Gap 11 mmol/L (10-20); BUN (Urea Nitrogen) 16 mg/dL (8.9-20.6); Bilirubin, Total 0.8 mg/dL (0.2-1.2); Calc. Creatinine Clearance 0 mL/min (70-130); Calcium 9.5 mg/dL (7.8-10.44); Carbon Dioxide 27 mmol/L (22-29); Chloride 104 mmol/L (98-107); Estimated GFR-MDRD Greater than 90; Globulin 3.3 g/dL (2.4-3.5); Glucose 82 mg/dL (70-105); Lipase 967 U/L (8-78); Potassium 3.7 mmol/L (3.5-5.1); Protein, Total 7.4 g/dL (6.0-8.3); Sodium 138 mmol/L (136-145)
[2018-12-20] MEDS ORDERED: Sodium Chloride 0.9% 100 ML ONE (08:47)
[2018-12-20] MEDS ORDERED: Piperacillin/Tazobactam 4.5 GM VIAL ONE (08:47)
--- NOTE | 2018-12-20 09:20 | CT ---
CT ABDOMEN AND PELVIS WITH IV CONTRAST: Date: 12-20-18 Provided Clinical History: Abdominal pain. FINDINGS: Comparison is made with the examination dated 06-06-16 and 08-10-18. The visualized lung bases are free of significant opacity. The right and left kidneys again demonstrate evidence for duplication. There is persistent hydronephr osis involving the inferior pole moiety on the right and to a lesser extent on the left as well. Ther e is no evidence for renal or ureteral calculi. The liver, spleen, pancreas, and adrenal glands demonstrate no significant abnormality. There is no evidence for bowel obstruction. There is mural thickening involving the rectum with surro unding fat stranding. Loops of small bowel within the right lower quadrant also demonstrate apparent mural thickening. The appendix is not visualized compatible with the provided clinical history of jaz or appendectomy. There is no evidence for free fluid or free air. The osseous structures demonstrate no concerning osteoblastic or osteolytic lesions. Bone islands are again seen. IMPRESSION: 1. Mural thickening involving the rectum with surrounding fat stranding as well as apparent mural thi ckening involving loops of bowel within the right lower quadrant. Differential considerations include primarily inflammatory bowel disease. Infectious etiologies can also be considered. 2. Bilateral duplication of the renal collecting systems with right greater than left hydronephrosis involving the inferior pole moiety collecting systems, likely on the basis of reflux. Nonemergent uro logic consultation is recommended if this has not been previously performed. POS: [facility]
--- NOTE | 2018-12-20 12:09 | ULT ---
ULTRASOUND GALLBLADDER RIGHT UPPER QUADRANT: Date: 12/20/18 HISTORY: Right upper quadrant pain. COMPARISON: CT same date. TECHNIQUE: Real-time Nix scale and color evaluation of the right upper quadrant of the abdomen was performed. Pancreas unremarkable. Increased hepatic echotexture with liver measuring up to 15.7 cm in length. Th e portal vein is patent with antegrade flow. Common bile duct is normal. No pericholecystic fluid. Common bile duct measures 5.0 mm. There is moderate to severe right-sided i nferior pole moiety hydronephrosis as seen on the prior CT examination. IMPRESSION: 1. Moderate to severe inferior pole moiety right renal hydronephrosis. 2. No evidence for cholecystitis. POS: [facility]
--- NOTE | 2018-12-20 12:53 | PDOC.FPRHP ---
- History of Present Illness Chief Complaint: abdominal pain History of Present Illness: This is a 33 yo M here w/ a CC of abdominal pain. Patient has a PMH significant for HIV, syphilis, DM, HTN, and Hep C. Patient states that he had an endoscopy done 2 weeks ago that showed gastroparesis. States no PUD. Patient went to [facility] last week for the same pain and they told him it was his "liver." Pain has been occurring for the past 3-4 months. Patient states pain is better w/ food. Characterizes it as sharp pain. States pain is epigastric and radiates straight through to the back. Started about 3-4am this morning. Patient endorses vomiting X 1 this AM that was bloody. Patients states it was tinged red , not bright or dark, and it was a minimal amount. Endorses decreased appetite. Endorses dark stools, diarrhea that was non bloody. Endorses hx of H pylori in Sep that was treated and confirmed w/ testing after treatment. Denies fever, rash, chest pain, SOB. Patient was diagnosed with HIV in 2014 - currently on Genvoya. Report he takes all his medications as directed. Patient reports taking tramadol at home that does help relieve the pain. Had A1C checked 2 weeks ago that was 6.7. Reports he checks his sugars at home that has been WNL. ED Course: zosyn 4.5g IV, LR 175mL/hr, 4mg IV morphine, 1L NS, 8mg zofran IV - Allergies/Adverse Reactions Allergies Allergy/AdvReac Type Severity Reaction Status Date / Time No Known Allergies Allergy Verified 08/10/18 11:32 - Home Medications Medication Instructions Recorded Confirmed Type Amlodipine [Norvasc] 10 mg PO DAILY 06/06/16 08/10/18 History Elviteg/Cob/Emtri/Tenofo Disop 1 tab PO QAM-WM 06/06/16 08/10/18 History [Stribild] Insulin Glargine,Hum.Rec.Anlog 75 unit SC HS 06/06/16 08/10/18 History [Lantus Solostar] Ezetimibe [Zetia] 10 mg PO DAILY 08/10/18 08/10/18 History Gabapentin 300 mg PO HS PRN 08/10/18 08/10/18 History Insulin Lispro Protamin/Lispro 35 units SC BID 08/10/18 08/10/18 History [HumaLOG Mix 75/25 KwikPen] - History PMHx: DM type 1, HTN, HIV, hx of syphilis, stage III cirrhosis 2017, Hep C PSHx: appendectomy FHx denies fam hx of HLD; mother - heart and kidney dz, SLE; brother - type I DM ; father - of colon cancer at age 62 Social: denies alcohol, drug, or tobacco use (former tobacco use and social alcohol use) - Review of Systems General: reports: fever/chills. denies: weight/appetite/sleep changes, night sweats, fatigue Eyes: denies: vision changes ENT: denies: nasal congestion, rhinorrhea Respiratory: denies: cough, congestion, shortness of breath Cardiovascular: reports: chest pain (worse w/ movement). denies: palpitation, edema Gastrointestinal: reports: nausea, vomiting, diarrhea, abdominal pain. denies: constipation Genitourinary: denies: dysuria Skin: denies: rashes, lesions, jaundice Musculoskeletal: denies: pain, tenderness, stiffness Neurological: denies: weakness - Vital signs BP: 133/86 HR: 88 RR: 14 Tmax: 98.3 Pox: 100% on RA Wt: 73kg - Physical Exam Constitutional: NAD, awake, alert and oriented, well developed HEENT: normocephalic and atraumatic, PERRLA, EOMI, grossly normal vision, grossly normal hearing, MMM Neck: supple, FROM Chest: no-tender to palpation, no lesions Heart: RRR, normal S1/S2, no murmurs/rubs/gallops Lungs: CTAB, no respiratory distress, good air movement, no wheezing Abdomen: soft, bowel sounds present, no masses/distention -Abdomen: negative ricketts, no rebound or guarding; TTP in RLQ and midepigastrium; LAURY non bloody, no masses Musculoskeletal: normal structure Neurological: no focal deficit Skin: no rash/lesions, good turgor, capillary refill <2 seconds Psychiatric: normal mood and affect, good judgment and insight FMR H&P: Results - Labs Result Diagrams: 12/20/18 06:16 12/20/18 06:16 Lab results: WBC 7.1 thou/uL (4.8-10.8) 12/20/18 06:16 Hgb 14.0 g/dL (14.0-18.0) 12/20/18 06:16 Hct 41.3 % (42.0-52.0) L 12/20/18 06:16 MCV 91.1 fL (78.0-98.0) 12/20/18 06:16 Plt Count 305 thou/uL (130-400) 12/20/18 06:16 Neutrophils % 60.9 % (42.0-75.0) 12/20/18 06:16 Sodium 138 mmol/L (136-145) 12/20/18 06:16 Potassium 3.7 mmol/L (3.5-5.1) 12/20/18 06:16 Chloride 104 mmol/L (98-107) 12/20/18 06:16 Carbon Dioxide 27 mmol/L (22-29) 12/20/18 06:16 BUN 16 mg/dL (8.9-20.6) 12/20/18 06:16 Creatinine 0.71 mg/dL (0.7-1.3) 12/20/18 06:16 Glucose 82 mg/dL (70-105) 12/20/18 06:16 Calcium 9.5 mg/dL (7.8-10.44) 12/20/18 06:16 Total Bilirubin 0.8 mg/dL (0.2-1.2) 12/20/18 06:16 AST 78 U/L (5-34) H 12/20/18 06:16 ALT 121 U/L (8-55) H 12/20/18 06:16 Alkaline Phosphatase 46 U/L (40-150) 12/20/18 06:16 Serum Total Protein 7.4 g/dL (6.0-8.3) 12/20/18 06:16 Albumin 4.1 g/dL (3.5-5.0) 12/20/18 06:16 Lipase 967 U/L (8-78) H 12/20/18 06:16 Urine Ketones Negative mg/dL (Negative) 12/20/18 06:09 Urine Blood Negative (Negative) 12/20/18 06:09 Urine Nitrite Negative (Negative) 12/20/18 06:09 Ur Leukocyte Esterase Negative (Negative) 12/20/18 06:09 - Radiology Interpretation CT scan - abdomen Status: report reviewed by me (Mural thickness involving the rectum w/ surrounding fat stranding as well as mural thickening involving loops of bowel within the RLQ. Bilateral duplication of the renal collecting systems.) US - abdomen Status: report reviewed by me (mod to severe inferior pole moiety right renal hydronephrosis; no evidence of cholecystitis; pancreatitis unremarkable) FMR H&P: A/P - Problem List (1) Pancreatitis Current Visit: Yes Status: Acute Code(s): K85.90 - ACUTE PANCREATITIS WITHOUT NECROSIS OR INFECTION, UNSP (2) HIV (human immunodeficiency virus infection) Current Visit: No Status: Chronic (3) Hepatitis C, chronic Current Visit: No Status: Chronic Code(s): B18.2 - CHRONIC VIRAL HEPATITIS C (4) Liver disease, chronic Current Visit: Yes Status: Acute Code(s): K76.9 - LIVER DISEASE, UNSPECIFIED (5) Diabetes Current Visit: Yes Status: Acute Code(s): E11.9 - TYPE 2 DIABETES MELLITUS WITHOUT COMPLICATIONS (6) HTN (hypertension) Current Visit: Yes Status: Acute Code(s): I10 - ESSENTIAL (PRIMARY) HYPERTENSION (7) Hydronephrosis Current Visit: Yes Status: Acute Code(s): N13.30 - UNSPECIFIED HYDRONEPHROSIS (8) Mural thickening of colon Current Visit: Yes Status: Acute Code(s): K63.9 - DISEASE OF INTESTINE, UNSPECIFIED - Plan Pancreatitis Lipase level of 967; unknown etiology. Patient has hx of HIV on genvoya which can cause pancreatitis and elevated transaminases. FLP pending. US neg for cholecystitis as cause. - Will trend lipase level - Will give IVF - zofran for nausea - FLP pending - CRP, ESR pending - Will start w/ clear liquids and advance diet as tolerated - Will give morphine PRN and transition to PO once better tolerated Chronic liver disease Due to patient's hx of Hep C. Hx of elevated transaminases. AST/ALT 78/121 - Aware, will trend transaminases - Will obtain INR, PT, PTT HIV Diagnosed 2 years ago. Per patient, HIV viral load undetectable at the time. - Will hold current meds as this could be cause of pancreatitis - Consider ID consult after viral load results - Will obtain viral load Hep C - Chronic problem DMI - Will continue current meds - States A1C 2 weeks ago 6.7; Will recheck - Mild SS Hydronephrosis R>L on CT abdomen. Hx of bilateral duplication of renal collecting systems. Present on previous admission - aware, will recommend Rectal Mural Wall Thickening - Consider GI consult - FOBT pending Code: FULL Dispo: admit to medical, inpt Case discussed with Dr. Lentz FMR H&P: Upper Level - Pertinent history 33 yo HM PMH HIV on HAART, untreated Hep C, and history of rectal wall thickening. Presents with 3 month history of epigastric pain that worsened at approximately 0300 today. States he sees GI and ID in [place]. Compliant with medication. No recent travel. Denies fever/chills. Had brief evaluation in hospital in July. No colonoscopy performed to date. Denies hematemesis or BRBPR. ER: Labs, RUQUS, CT abdomen/pelvis, zofran, zosyn, morphine, NS 2L - Pertinent findings Vitals: WNL GEN: NAD CV: RRR Pulm: CTA-B, normal effort Abdomen: TTP RUQ and epigastric region. No rebound or guarding. Rectal: no masses or strictures Labs: AST 70, ALT 120, lipase 900s CT: worsening of rectal wall thickening, spoke with radiologist. RUQ US: no acute findings - Plan Date/Time: 12/20/18 1249 I, Juan George MD, have evaluated this patient and agree with findings/plan as outlined by graphics intern resident. Pertinent changes/additions are listed here. 1. Acute pancreatitis: NPO, morphine PRN, LR 150 mL/hr. Will attempt to advance diet tomorrow 2. Rectal wall thickening: D/C abx, check procalcitonin, Etiology unknown. differential includes IBD, HIV related infections. Check HIV viral load and CMV. Denies diarrhea so infection less likely. 3. Hepatitis C: check RNA PCR, outpatient evaluation/treatment 4. DM 1: resume home insulin, ACHS checks, check A1c 5. Transaminitis: See plan #3. May be 2/2 pancreatitis vs hep c Diet: NPO PPx: SCD CODE: FULL DISPO: inpatient, medical, >[address] Lentz.
--- NOTE | 2018-12-20 13:39 | PDOC.FPRHP ---
- Allergies/Adverse Reactions Allergies Allergy/AdvReac Type Severity Reaction Status Date / Time No Known Allergies Allergy Verified 08/10/18 11:32 - Home Medications Medication Instructions Recorded Confirmed Type Amlodipine [Norvasc] 10 mg PO DAILY 06/06/16 08/10/18 History Elviteg/Cob/Emtri/Tenofo Disop 1 tab PO QAM-WM 06/06/16 08/10/18 History [Stribild] Insulin Glargine,Hum.Rec.Anlog 75 unit SC HS 06/06/16 08/10/18 History [Lantus Solostar] Ezetimibe [Zetia] 10 mg PO DAILY 08/10/18 08/10/18 History Gabapentin 300 mg PO HS PRN 08/10/18 08/10/18 History Insulin Lispro Protamin/Lispro 35 units SC BID 08/10/18 08/10/18 History [HumaLOG Mix 75/25 KwikPen] - History PMHx: PSHx: FHx: Social: - Vital signs BP: [] HR: [] RR: [] Tmax: [] Pox: []% on [] Wt: [] FMR H&P: Results - Labs Result Diagrams: 12/20/18 06:16 12/20/18 06:16 Lab results: WBC 7.1 thou/uL (4.8-10.8) 12/20/18 06:16 Hgb 14.0 g/dL (14.0-18.0) 12/20/18 06:16 Hct 41.3 % (42.0-52.0) L 12/20/18 06:16 MCV 91.1 fL (78.0-98.0) 12/20/18 06:16 Plt Count 305 thou/uL (130-400) 12/20/18 06:16 Neutrophils % 60.9 % (42.0-75.0) 12/20/18 06:16 Sodium 138 mmol/L (136-145) 12/20/18 06:16 Potassium 3.7 mmol/L (3.5-5.1) 12/20/18 06:16 Chloride 104 mmol/L (98-107) 12/20/18 06:16 Carbon Dioxide 27 mmol/L (22-29) 12/20/18 06:16 BUN 16 mg/dL (8.9-20.6) 12/20/18 06:16 Creatinine 0.71 mg/dL (0.7-1.3) 12/20/18 06:16 Glucose 82 mg/dL (70-105) 12/20/18 06:16 Calcium 9.5 mg/dL (7.8-10.44) 12/20/18 06:16 Total Bilirubin 0.8 mg/dL (0.2-1.2) 12/20/18 06:16 AST 78 U/L (5-34) H 12/20/18 06:16 ALT 121 U/L (8-55) H 12/20/18 06:16 Alkaline Phosphatase 46 U/L (40-150) 12/20/18 06:16 Serum Total Protein 7.4 g/dL (6.0-8.3) 12/20/18 06:16 Albumin 4.1 g/dL (3.5-5.0) 12/20/18 06:16 Lipase 967 U/L (8-78) H 12/20/18 06:16 Urine Ketones Negative mg/dL (Negative) 12/20/18 06:09 Urine Blood Negative (Negative) 12/20/18 06:09 Urine Nitrite Negative (Negative) 12/20/18 06:09 Ur Leukocyte Esterase Negative (Negative) 12/20/18 06:09 FMR H&P: Upper Level - Plan Date/Time: 12/20/18 1326 I, [], have evaluated this patient and agree with findings/plan as outlined by kinesiology internship resident. Pertinent changes/additions are listed here.
[2018-12-20] MEDS ORDERED: Morphine 4 MG/ML VIAL SLOW IVP PRN ×2 (14:29→14:33)
[2018-12-20] MEDS ORDERED: Lactated Ringer's 1,000 ML IV SCH ×3 (14:29→14:45)
[2018-12-20] MEDS ORDERED: Ondansetron ODT 4 MG TAB PO PRN ×2 (14:29→14:37)
[2018-12-20] MEDS ORDERED: Ondansetron PF 4 MG/2 ML Vial IVP PRN (14:30)
[2018-12-20] MEDS ORDERED: Ondansetron ODT 4 MG TAB SL PRN (14:30)
[2018-12-20 14:54] LABS: Hemoglobin A1c 5.7 % (4.0-6.0)
[2018-12-20 14:57] LABS: CRP (Inflammatory) Less than 0.50 mg/dL (= or < 0.5); Cardiac Risk 2.2 (Less than 4.5); Cholesterol 104 mg/dl (< 200 Desired); HDL Cholesterol 47 mg/dL (>60 Neg Risk); LDL Cholesterol, Calculated 43 mg/dL; Triglycerides 70 mg/dL (Less than 150)
[2018-12-20 16:33] VITALS: BMI 21.1
[2018-12-20] MEDS ORDERED: ISOVUE-370 76%-LOCM 1 ML ONE (16:51)
[2018-12-20] MEDS ORDERED: Iopamidol 370 76% 50 ML VIAL FS ONE (16:51)
[2018-12-20] MEDS ORDERED: Gabapentin 300 MG CAP PO PRN (17:01)
[2018-12-20] MEDS ORDERED: Dextrose 5% in Water 1,000 ML IV PRN (17:07)
[2018-12-20] MEDS: Acetaminophen 500 MG TAB PO PRN (17:28)
[2018-12-20] MEDS: Dextrose 50% Abboject 50 ML SYRINGE SLOW IVP PRN (17:28)
[2018-12-20] MEDS: Dextrose 5%-Lactated Ringers 1,000 ML IV SCH ×2 (17:33→21:54)
[2018-12-20 17:54] LABS: Glucose 48 mg/dL (70-105)
[2018-12-20] MEDS: Morphine 4 MG/ML VIAL SLOW IVP PRN (20:53)
[2018-12-20] MEDS ORDERED: Insulin Glargine 75 UNITS in Pre-Filled Syringe 1 EACH SC SCH (21:00)
[2018-12-20] MEDS ORDERED: Non-Formulary Item 1 EACH (Insulin Glargine,Hum.Rec.Anlog [Lantus Solostar] 75 UNIT) SC SCH (21:00)
[2018-12-20] MEDS ORDERED: Insulin Glargine 45 UNITS in Pre-Filled Syringe 1 EACH SC SCH (21:30)
[2018-12-21] MEDS: Dextrose 50% Abboject 50 ML SYRINGE SLOW IVP PRN ×4 (00:20→11:40)
[2018-12-21] MEDS: Dextrose 5%-Lactated Ringers 1,000 ML IV SCH ×3 (04:06→21:39)
[2018-12-21] MEDS: Morphine 4 MG/ML VIAL SLOW IVP PRN ×3 (06:29→19:00)
[2018-12-21 07:10] LABS: #Eosinphils 0.1 thou/uL (0.0-0.7); #Lymphocytes 2.5 thou/uL (1.20-3.40); #Monocytes 0.6 thou/uL (0.11-0.59); %Basophils 0.8 % (0.0-1.0); %Eosinophils 1.3 % (0.0-10.0); %Lymphocytes 48.7 % (21.0-51.0); %Monocytes 11.3 % (0.0-10.0); %Neutrophils 37.9 % (42.0-75.0); Hemoglobin 13.6 g/dL (14.0-18.0); Mean Corpuscular HGB CONC 33.4 g/dL (32.0-36.0); Mean Corpuscular Hemoglobin 30.4 pg (27.0-31.0); Mean Corpuscular Volume 91.2 fL (78.0-98.0); Mean Platelet Volume 6.4 fL (7.4-10.4); Platelet Count 280 thou/uL (130-400); RBC Distribution Width 11.7 % (11.5-14.5); Red Blood Cell (RBC) Count 4.47 mill/uL (4.70-6.10); White Blood Cell (WBC) Count 5.2 thou/uL (4.8-10.8)
[2018-12-21 07:28] LABS: ALT (SGPT) 133 U/L (8-55); AST (SGOT) 69 U/L (5-34); Albumin 3.8 g/dL (3.5-5.0); Alkaline Phosphatase 43 U/L (40-150); Anion Gap 10 mmol/L (10-20); BUN (Urea Nitrogen) 7 mg/dL (8.9-20.6); Bilirubin, Total 1.1 mg/dL (0.2-1.2); Calc. Creatinine Clearance 152 mL/min (70-130); Calcium 9.4 mg/dL (7.8-10.44); Carbon Dioxide 28 mmol/L (22-29); Chloride 104 mmol/L (98-107); Estimated GFR-MDRD Greater than 90; Potassium 3.5 mmol/L (3.5-5.1); Protein, Total 6.8 g/dL (6.0-8.3); Sodium 138 mmol/L (136-145)
[2018-12-21 07:34] LABS: Glucose 43 mg/dL (70-105)
[2018-12-21] MEDS ORDERED: Elviteg/Cob/Emtri/Tenofo Disop [Stribild] 1 TAB PO SCH (08:00)
[2018-12-21] MEDS ORDERED: HumuLIN 70/30 (300 UNITS/3 ML VIAL) SC SCH (08:00)
--- NOTE | 2018-12-21 09:34 | PDOC.FM ---
- Subjective Subjective: POC glucose dropped <70 last night, given D5 amp. Pt. asx. Reports improvement in abd pain with pain meds. NO diarrhea, emesis. Ready to eat - Objective MAR Reviewed: Yes Vital Signs & Weight: Vital Signs (12 hours) Temp Pulse Resp BP Pulse Ox 12/21/18 07:29 98.6 F 91 14 122/78 98 12/21/18 04:00 98.5 F 89 18 125/76 99 12/21/18 00:12 99.0 F 93 16 124/77 98 Weight Weight 72.575 kg I&O: 12/20/18 12/21/18 12/22/18 06:59 06:59 06:59 Intake Total 1800 Balance 1800 Result Diagrams: 12/21/18 06:42 12/21/18 06:42 Phys Exam - Physical Examination Constitutional: NAD HEENT: moist MMs Gastrointestinal: soft, no distention, positive bowel sounds epigastric tenerness to deep palpatiojn Neurological: moves all 4 limbs Dx/Plan (1) Diabetes Code(s): E11.9 - TYPE 2 DIABETES MELLITUS WITHOUT COMPLICATIONS Status: Acute (2) HTN (hypertension) Code(s): I10 - ESSENTIAL (PRIMARY) HYPERTENSION Status: Acute (3) Hydronephrosis Code(s): N13.30 - UNSPECIFIED HYDRONEPHROSIS Status: Acute (4) Mural thickening of colon Code(s): K63.9 - DISEASE OF INTESTINE, UNSPECIFIED Status: Acute (5) Pancreatitis Code(s): K85.90 - ACUTE PANCREATITIS WITHOUT NECROSIS OR INFECTION, UNSP Status: Acute (6) Transaminitis Code(s): R74.0 - NONSPEC ELEV OF LEVELS OF TRANSAMNS & LACTIC ACID DEHYDRGNSE Status: Acute (7) HIV (human immunodeficiency virus infection) Status: Chronic (8) Hepatitis C, chronic Code(s): B18.2 - CHRONIC VIRAL HEPATITIS C Status: Chronic - Plan Plan: Pancreatitis Lipase level of 967; unknown etiology. Patient has hx of HIV on genvoya which can cause pancreatitis and elevated transaminases. FLP pending. US neg for cholecystitis as cause. - Will trend lipase level - Will give IVF - zofran for nausea - FLP nml, imaging no gallstones, no etoh - CRP, ESR nml - NPO for now, CLD for dinner if pain resolves - Will give morphine PRN and transition to PO once better tolerated - pancreatitis could be 2/2 to HIV vs. HIV meds vs. idiopathi -Discussed results of CT abd, recommened seeing GI doc, however pt declined and wants to see his GI doc in [place] Chronic liver disease Due to patient's hx of Hep C. Hx of elevated transaminases. AST/ALT 78/121 - Aware, will trend transaminases - Will obtain INR, PT, PTT HIV Diagnosed 2 years ago. Per patient, HIV viral load undetectable at the time. - Will hold current meds as this could be cause of pancreatitis - Consider ID consult after viral load results - Will obtain viral load Hep C - Chronic problem DMI - Will dec long acting insulin while NPO - States A1C within normal - Mild SS Hydronephrosis R>L on CT abdomen. Hx of bilateral duplication of renal collecting systems. Present on previous admission - aware, will recommend Rectal Mural Wall Thickening - pt desires to f/u with own GI doc in [place] - FOBT negative -ddx: inflammatory vs infectious, stool stuies pening Code: FULL Case discussed with Dr. Lentz dispo: dec lantus dosing while NPO. Morphine PRN for pain control. once abd pain resolves will start on CLD for dinner. etiology of pancreatitis inclues hiv vs haart therapy. Addendum - Attending - Attending Attestation Date/Time: 12/21/18 [id number] I personally evaluated the patient and discussed the management with Dr. Cavanaugh I agree with the History, Examination, Assessment and Plan documented above with any addition or exceptions noted below. Pancreatitis- history and exam and lipase consistent (though CT scan shows normal pancreas). NPO until pain improved and continue IVF. No gallstones noted and no alcohol history. No obvious reason for pancreatitis but may be secondary to HIV meds. Rectal wall thickening- discussed GI consult with patient and he declines as he prefers to see his GI in [place]. T1DM- hypoglycemia overnight- he is on D5NS and we have halved his home insulin. Continue to monitor closely. HIV- continue home meds and have his discuss with his ID doc in [place]
[2018-12-21] MEDS ORDERED: Insulin Glargine 75 UNITS in Pre-Filled Syringe 1 EACH SC SCH (21:00)
[2018-12-21] MEDS: Acetaminophen 500 MG TAB PO PRN (21:42)
[2018-12-22] MEDS: Morphine 4 MG/ML VIAL SLOW IVP PRN ×2 (01:02→06:32)
[2018-12-22] MEDS: Dextrose 5%-Lactated Ringers 1,000 ML IV SCH ×2 (05:26→10:03)
--- NOTE | 2018-12-22 06:47 | PDOC.FM ---
Addendum entered and electronically signed by Katrina Cavanaugh MD 12/22/18 09:38 : Elevated LFTs: stable, trend, outpt follow up. Likely from HIV vs. Hep C Original Note: - Subjective Subjective: NAEO. Able to tolerate CLD, ready to advance. Abd pain much improved - Objective MAR Reviewed: Yes Vital Signs & Weight: Vital Signs (12 hours) Temp Pulse Resp BP Pulse Ox 12/21/18 20:00 97.8 F 112 H 18 137/87 97 Weight Weight 72.575 kg I&O: 12/20/18 12/21/18 12/22/18 06:59 06:59 06:59 Intake Total 1800 Balance 1800 Result Diagrams: 12/22/18 06:46 12/22/18 06:46 Phys Exam - Physical Examination Constitutional: NAD HEENT: PERRLA, moist MMs, sclera anicteric Neck: supple, full ROM Cardiovascular: RRR, no significant murmur Gastrointestinal: soft, non-tender, no distention, positive bowel sounds Neurological: moves all 4 limbs Psychiatric: normal affect, A&O x 3 Dx/Plan (1) Diabetes Code(s): E11.9 - TYPE 2 DIABETES MELLITUS WITHOUT COMPLICATIONS Status: Acute (2) HTN (hypertension) Code(s): I10 - ESSENTIAL (PRIMARY) HYPERTENSION Status: Acute (3) Hydronephrosis Code(s): N13.30 - UNSPECIFIED HYDRONEPHROSIS Status: Acute (4) Mural thickening of colon Code(s): K63.9 - DISEASE OF INTESTINE, UNSPECIFIED Status: Acute (5) Pancreatitis Code(s): K85.90 - ACUTE PANCREATITIS WITHOUT NECROSIS OR INFECTION, UNSP Status: Acute (6) Transaminitis Code(s): R74.0 - NONSPEC ELEV OF LEVELS OF TRANSAMNS & LACTIC ACID DEHYDRGNSE Status: Acute (7) HIV (human immunodeficiency virus infection) Status: Chronic (8) Hepatitis C, chronic Code(s): B18.2 - CHRONIC VIRAL HEPATITIS C Status: Chronic - Plan Plan: Acute Pancreatitis Lipase level of 967; unknown etiology. Patient has hx of HIV on genvoya which can cause pancreatitis and elevated transaminases. FLP pending. US neg for cholecystitis as cause. - zofran for nausea - FLP nml, imaging no gallstones, no etoh - CRP, ESR nml - d/c morphine, ultram PRN - pancreatitis could be 2/2 to HIV vs. HIV meds vs. idiopathic - tolerated CLD, adv to FLD Chronic liver disease Due to patient's hx of Hep C. Hx of elevated transaminases. AST/ALT 78/121 - Aware, will trend transaminases - Will obtain INR, PT, PTT HIV Diagnosed 2 years ago. Per patient, HIV viral load undetectable at the time. - Will hold current meds as this could be cause of pancreatitis - Consider ID consult after viral load results - Will obtain viral load Hep C - Chronic problem DMI - Will dec long acting insulin while NPO - States A1C within normal - Mild SS Hydronephrosis R>L on CT abdomen. Hx of bilateral duplication of renal collecting systems. Present on previous admission - aware, will recommend Rectal Mural Wall Thickening - pt desires to f/u with own GI doc in [place] - FOBT negative -ddx: inflammatory vs infectious, stool stuies pening Code: FULL Case discussed with Dr. Lentz dispo: dec lantus dose due to hypoglycemic episodes. adv to FLD today. descalate pain meds: d/c morphine, ultram prn. etiology of pancreatitis inclues hiv vs haart therapy, if can tolerate meals today and feels better possible d/c later Addendum - Attending - Attending Attestation Date/Time: 12/22/18 [id number] I personally evaluated the patient and discussed the management with Dr. Cavanaugh I agree with the History, Examination, Assessment and Plan documented above with any addition or exceptions noted below. Acute pancreatitis-pain improved and tolerating full diet- Colonic mural thickening- patient desires f/u with his GI in [place] HIV/Hep C Stable for d/c home
[2018-12-22 07:39] LABS: ALT (SGPT) 138 U/L (8-55); AST (SGOT) 60 U/L (5-34); Albumin 3.7 g/dL (3.5-5.0); Alkaline Phosphatase 39 U/L (40-150); Anion Gap 12 mmol/L (10-20); BUN (Urea Nitrogen) 6 mg/dL (8.9-20.6); Bilirubin, Total 1.1 mg/dL (0.2-1.2); Calc. Creatinine Clearance 154 mL/min (70-130); Calcium 9.5 mg/dL (7.8-10.44); Carbon Dioxide 28 mmol/L (22-29); Chloride 103 mmol/L (98-107); Estimated GFR-MDRD Greater than 90; Glucose 90 mg/dL (70-105); Potassium 3.8 mmol/L (3.5-5.1); Protein, Total 6.7 g/dL (6.0-8.3); Sodium 139 mmol/L (136-145)
[2018-12-22 07:41] LABS: Eosinophils 3 % (0-10); Hemoglobin 13.3 g/dL (14.0-18.0); Lymphocytes 48 % (21-51); MDiff Complete? YES; Mean Corpuscular HGB CONC 34.3 g/dL (32.0-36.0); Mean Corpuscular Hemoglobin 31.3 pg (27.0-31.0); Mean Corpuscular Volume 91.3 fL (78.0-98.0); Mean Platelet Volume 6.1 fL (7.4-10.4); Monocytes 11 % (0-10); Neutrophil 33 % (42-75); Platelet Count 267 thou/uL (130-400); RBC Distribution Width 11.6 % (11.5-14.5); RBC Morphology Normal; Reactive Lymphocytes 5 % (0-10); Red Blood Cell (RBC) Count 4.24 mill/uL (4.70-6.10); White Blood Cell (WBC) Count 4.6 thou/uL (4.8-10.8)
[2018-12-22] MEDS ORDERED: Insulin Glargine 20 UNITS in Pre-Filled Syringe 1 EACH SC SCH (09:00)
[2018-12-22] MEDS ORDERED: traMADol HCl 50 MG TAB PO PRN (09:06)
[2018-12-22] MEDS ORDERED: Morphine 4 MG/ML VIAL SLOW IVP PRN (09:06)
[2018-12-22 11:24] LABS: HIV-1 Quantitative, RNA PCR <20 copies/mL (.)
[2018-12-22 16:30] VITALS: BP 110/76; TEMP 98.7
--- NOTE | 2018-12-23 11:54 | DIS ---
DATE OF ADMISSION: 12/20/2018 DATE OF DISCHARGE: 12/22/2018 DISCHARGE ATTENDING: Dr. Huddleston. RESIDENT: Katrina Cavanaugh MD, PGY-1. CONSULTS: None, PROCEDURES: None. PRIMARY DIAGNOSES: 1. Acute pancreatitis, idiopathic. 2. Colitis, secondary to infectious versus inflammatory etiology. SECONDARY DIAGNOSES: 1. Human immunodeficiency virus. 2. Hepatitis C. 3. Syphilis. 4. Type 2 diabetes mellitus. 5. Hypertension. 6. Cirrhosis, secondary to hep C. DISCHARGE MEDICATIONS: 1. Tylenol 1000 mg p.o. q.6 hours p.r.n. for pain. 2. Genvoya 1 tablet p.o. daily. 3. Reglan 10 mg p.o. t.i.d. 4. Protonix 40 mg p.o. daily. 5. Gabapentin 300 mg p.o. at bedtime p.r.n. 6. Humalog 75/25 35 units subcu b.i.d. 7. Lantus Solostar insulin 25 units subcu at bedtime. DISCONTINUED MEDICATIONS: None. HPI. HISTORY OF PRESENT ILLNESS/HOSPITAL COURSE: A 33-year-old male with chief complaint of abdominal pain. The patient has history significant for HIV, syphilis, diabetes type 2, hypertension, and hepatitis C. The patient described pain as epigastric , radiating to the back, awoke him from sleep earlier that morning. Labs were pertinent for lipase elevated three times above the limit of normal. The patient was admitted for acute pancreatitis meeting criteria for clinical presentation and with lipase. Imaging was negative for signs of acute pancreatitis. The patient was started on appropriate pain medications and . In regards to the etiology of pancreatitis, the workup was negative. Right upper quadrant ultrasound was negative for gallstones. Fasting lipid panel was normal. The patient is not a drinker nor has he had any recent illnesses or sicknesses. We thought that either the HIV medication Genvoya or his HIV condition may have been the cause. He is advised to follow up with his HIV doctor, who he is scheduled to see in the next month to inquire about Genvoya and possible switch in medication. Of note, abdominal and pelvis CT was pertinent for mural thickening of the rectum with fat stranding. In addition to the presence of mural thickening involving loops of bowel within the right lower quadrant. The patient denied any history of hematochezia and FOBT was negative. Due to imaging, we felt that there may be underlying inflammatory bowel disease. The patient declined further workup in the hospital with medicare sales representative, I think he would rather see the GI doctor, he follows in [place]. Recommendations were made to follow up with him as soon as possible. Over 2 days, the patient was able to tolerate a diet and pain was controlled. In addition, the patient is a type 2 diabetic, requiring insulin and during the hospital course, experienced a few asymptomatic hypoglycemic episodes. Insulin was titrated down due to his n.p.o. status. Upon discharge, instructions were given to titrate insulin according to how much would he anticipated to eat in order to avoid hypoglycemic episode. He was counseled on signs and symptoms and what to do should hypoglycemic episodes manifest. DISPOSITION: Stable. DISCHARGE INSTRUCTIONS: 1. Location: Home. 2. Diet: Advance as tolerated. 3. Activity: Ad mesha. FOLLOWUP: 1. Please follow up with PCP. 2. Please follow up with Infectious Disease doctor in regards to HIV medication causing acute pancreatitis. 3. Follow up with medicare sales representative in order to further assess colitis seen on abdominal imaging. Job ID: [id number] SILVESTRE
== END 2018-12-22 16:30 | disposition home or self-care (01) | DRG 439 ==
LOC: ERS 05:38 → ERHOLD 12:57 → OBSVTOIN 12:57 → T4-A 14:28
PROVIDERS: ADMIT Family Medicine; ATTEND Family Medicine
DX: K85.00 Idiopathic acute pancreatitis without necrosis or infection (principal); N13.30 Unspecified hydronephrosis; B20 Human immunodeficiency virus [HIV] disease; A09 Infectious gastroenteritis and colitis, unspecified; B18.2 Chronic viral hepatitis C; E10.649 Type 1 diabetes mellitus with hypoglycemia without coma; I10 Essential (primary) hypertension; K63.9 Disease of intestine, unspecified; R74.0 Nonspecific elevation of levels of transaminase and lactic acid dehydrogenase [LDH]; K74.60 Unspecified cirrhosis of liver; Z79.899 Other long term (current) drug therapy; Z79.4 Long term (current) use of insulin; Z83.3 Family history of diabetes mellitus; Z87.891 Personal history of nicotine dependence
CPT/HCPCS: 36415; 36416; 74177; 76705; 80053; 80061; 81003; 82274; 83036; 83690; 84145; 84484; 84681; 85025; 85610; 85652; 85730; 86140; 86644; 86645; 87536; 93005; 96361; 96365; 96375; 96376; J1610; J1815; J2270; J2405; J2543; J7050; Q0162

== ENCOUNTER 2019-01-12 20:46 | Emergency (ER) | payer BC ==
[~2019-01-12 20:46] MED LIST: ISOVUE-370 76%-LOCM 1 ML ONE
--- NOTE | 2019-01-12 21:15 | RAD ---
PORTABLE CHEST: 01/12/19 HISTORY: Chest pain. COMPARISON: 06/06/16 study. Heart size and mediastinum are within normal limits. The lungs are clear of infiltrates. There are no significant bony findings. IMPRESSION: No active intrathoracic disease. POS: [facility]
[2019-01-12 21:39] LABS: #Basophils 0.1 thou/uL (0.0-0.2); #Lymphocytes 2.4 thou/uL (1.20-3.40); #Monocytes 0.5 thou/uL (0.11-0.59); #Neutrophils 3.2 thou/uL (1.40-6.50); %Basophils 0.9 % (0.0-1.0); %Eosinophils 0.3 % (0.0-10.0); %Lymphocytes 39.5 % (21.0-51.0); %Monocytes 7.9 % (0.0-10.0); %Neutrophils 51.5 % (42.0-75.0); Hemoglobin 14.8 g/dL (14.0-18.0); Mean Corpuscular HGB CONC 34.6 g/dL (32.0-36.0); Mean Corpuscular Hemoglobin 31.1 pg (27.0-31.0); Mean Corpuscular Volume 89.9 fL (78.0-98.0); Mean Platelet Volume 6.8 fL (7.4-10.4); Platelet Count 316 thou/uL (130-400); RBC Distribution Width 11.4 % (11.5-14.5); Red Blood Cell (RBC) Count 4.77 mill/uL (4.70-6.10); White Blood Cell (WBC) Count 6.1 thou/uL (4.8-10.8)
[2019-01-12 22:01] LABS: ALT (SGPT) 76 U/L (8-55); AST (SGOT) 32 U/L (5-34); Albumin 4.6 g/dL (3.5-5.0); Alkaline Phosphatase 48 U/L (40-150); Anion Gap 14 mmol/L (10-20); BUN (Urea Nitrogen) 20 mg/dL (8.9-20.6); Bilirubin, Total 0.8 mg/dL (0.2-1.2); Calc. Creatinine Clearance 0 mL/min (70-130); Calcium 9.9 mg/dL (7.8-10.44); Carbon Dioxide 27 mmol/L (22-29); Chloride 98 mmol/L (98-107); Estimated GFR-MDRD 80; Globulin 3.7 g/dL (2.4-3.5); Glucose 218 mg/dL (70-105); Lipase 22 U/L (8-78); Potassium 3.5 mmol/L (3.5-5.1); Protein, Total 8.3 g/dL (6.0-8.3); Sodium 135 mmol/L (136-145)
[2019-01-12] MEDS ORDERED: Ketorolac Tromethamine 30 MG/ML VIAL ONE (23:16)
--- NOTE | 2019-01-13 08:12 | CT ---
PRELIMINARY REPORT/[facility]/EMERGENTY AFTER-HOURS PROCEDURE CT Angiography Chest With Contrast EXAM DATE/TIME: 01/12/2019 11:54 PM CLINICAL HISTORY: 33 years old, male; Pain; Chest pain; Patient HX: 33 yo male presents for onset of chest pain/abdomin al pain. Patient states that the pain began when he was at work at [email or web address] around 19:00. Patient de nies SOB, n/v, or diaphoresis. He has noted that he has had diarrhea TECHNIQUE: Axial computed tomographic angiography images of the chest with intravenous contrast using CT angiogr aphy protocol. MIP reconstructed images were created and reviewed. COMPARISON: No relevant prior studies available. FINDINGS: Pulmonary arteries: No visible acute pulmonary embolism. Aorta: No aortic dissection. Lungs: There is mild right lower lobe subsegmental atelectasis or parenchymal scarring. Pleural space: Normal. No pneumothorax. No pleural effusion. Heart: Normal. No cardiomegaly. No pericardial effusion. Lymph nodes: Unremarkable. No enlarged lymph nodes. Bones/joints: There are mild degenerative changes of the spine. Soft tissues: Unremarkable. IMPRESSION: 1. No visible acute pulmonary embolism. 2. No aortic dissection. Thank you for allowing us to participate in the care of your patient. Dictated and Authenticated by: Anirudh Durant MD 01/13/2019 12:46 AM Central Time ([place] & [place]) FINAL REPORT EMERGENT AFTER HOURS CTA OF THE CHEST WITH CONTRAST: Comparison: 08-11-18 Technique: Multiple contiguous axial images were obtained in a CTA of the chest with contrast perform ed embolism protocol. 3D oblique MIP reformats and direct coronal reformats were performed. FINDINGS/IMPRESSION: I agree with the findings and impression given in the preliminary report per [facility] physician. No evide nce of pulmonary of thromboembolism. POS: [facility]
== END 2019-01-13 02:17 | disposition home or self-care (01) ==
LOC: ERS 20:46
DX: R07.89 Other chest pain (principal); E10.9 Type 1 diabetes mellitus without complications; I10 Essential (primary) hypertension; B20 Human immunodeficiency virus [HIV] disease; Z87.891 Personal history of nicotine dependence; Z79.899 Other long term (current) drug therapy
CPT/HCPCS: 36415; 36416; 71045; 71275; 80053; 83690; 84484; 85025; 85379; 93005; 94760; 96361; 96374; J1885; Q9966

== ENCOUNTER 2019-02-05 19:20 | Emergency (ER) | payer BC ==
--- NOTE | 2019-02-05 19:40 | RAD ---
RADIOGRAPH CHEST 1 VIEW: 02/05/19 HISTORY: 34-year-old male with chest pain and dyspnea. FINDINGS: There are no air space densities, pulmonary edema, pneumothorax, or cardiomegaly. The lateral costop hrenic angles are sharp. IMPRESSION: No acute cardiopulmonary findings. jn [] POS: [facility]
[2019-02-05 20:52] LABS: #Lymphocytes 2.1 thou/uL (1.20-3.40); #Monocytes 0.5 thou/uL (0.11-0.59); #Neutrophils 2.5 thou/uL (1.40-6.50); %Basophils 0.5 % (0.0-1.0); %Eosinophils 0.4 % (0.0-10.0); %Lymphocytes 41.6 % (21.0-51.0); %Monocytes 8.9 % (0.0-10.0); %Neutrophils 48.7 % (42.0-75.0); Hemoglobin 16.8 g/dL (14.0-18.0); Mean Corpuscular HGB CONC 33.4 g/dL (32.0-36.0); Mean Corpuscular Hemoglobin 30.6 pg (27.0-31.0); Mean Corpuscular Volume 91.6 fL (78.0-98.0); Mean Platelet Volume 7.1 fL (7.4-10.4); Platelet Count 293 thou/uL (130-400); RBC Distribution Width 11.6 % (11.5-14.5); White Blood Cell (WBC) Count 5.1 thou/uL (4.8-10.8)
[2019-02-05 21:08] LABS: ALT (SGPT) 135 U/L (8-55); AST (SGOT) 58 U/L (5-34); Albumin 4.6 g/dL (3.5-5.0); Alkaline Phosphatase 55 U/L (40-150); Anion Gap 11 mmol/L (10-20); BUN (Urea Nitrogen) 19 mg/dL (8.9-20.6); Bilirubin, Total 1.3 mg/dL (0.2-1.2); CK (CPK) 45 U/L (30-200); Calc. Creatinine Clearance 0 mL/min (70-130); Calcium 10.5 mg/dL (7.8-10.44); Carbon Dioxide 31 mmol/L (22-29); Chloride 97 mmol/L (98-107); Estimated GFR-MDRD Greater than 90; Globulin 3.9 g/dL (2.4-3.5); Glucose 145 mg/dL (70-105); Lipase 17 U/L (8-78); Potassium 3.9 mmol/L (3.5-5.1); Protein, Total 8.5 g/dL (6.0-8.3); Sodium 135 mmol/L (136-145)
[2019-02-05 21:29] LABS: Acetaminophen Less than 6.0 mcg/mL (10.0-30.0); Alcohol Less than 10 mg/dL (Less than 10); Salicylate Less than 8.0 mg/dL (15.0-30.0)
[2019-02-05 22:24] LABS: Bilirubin Small (Negative); Blood, Urine Small (Negative); Clarity CLEAR (Clear); Glucose, Urine (Dipstick) Negative (Negative); Leukocyte Negative (Negative); Nitrite Negative (Negative); Protein, Urine (Dipstick) 30 mg/dL (Neg-Trace); Specific Gravity, Urine 1.026 (1.002-1.036)
[2019-02-05 22:25] LABS: Squamous Epithelial 0-3 HPF (0-3); WBC/HPF 0-3 HPF (0-3)
[2019-02-05 22:26] LABS: Pathc Cast-AUWi Flag 2.58 (0-2.49)
[2019-02-05 22:32] LABS: Amphetamine Not Detected (NotDetected); Barbiturates Screen Not Detected (NotDetected); Benzodiazepine Screen Not Detected (NotDetected); Cocaine Metabolite Screen Not Detected (NotDetected); Medtox Control Line Valid? VALID (VALID); Medtox Reader # READER 1; Methadone Not Detected (NotDetected); Methamphetamine Not Detected (NotDetected); Opiate Screen Not Detected (NotDetected); Oxycodone Screen Not Detected (NotDetected); Phencyclidine (PCP) Not Detected (NotDetected); THC/Cannabinoid Screen Not Detected (NotDetected); Tricyclic Screen Not Detected (NotDetected)
[2019-02-05 22:34] LABS: Bacteria/HPF Rare-Few HPF (None Seen)
--- NOTE | 2019-02-05 23:11 | CT ---
CTA OF THE THORAX UTILIZING IV CONTRAST AND 3D REFORMATTED IMAGIN02/05/19 INDICATION: Concern for PE with shortness of breath and epigastric abdominal pain. FINDINGS: No central or segmental pulmonary embolus evident. There is a small area of subsegmental volume loss within the right lung base. This is stable to the comparison dated 01/12/19. Heart and great vessels a re unremarkable. The visualized upper abdomen reveals no acute abnormality. No acute osseous abnormal ity is evident. IMPRESSION: No central or segmental pulmonary embolus. POS: [facility]
[2019-02-05] MEDS ORDERED: Ketorolac Tromethamine 30 MG/ML VIAL ONE (23:35)
== END 2019-02-05 23:46 | disposition home or self-care (01) ==
LOC: ERS 19:20
DX: R10.13 Epigastric pain (principal); E10.9 Type 1 diabetes mellitus without complications; I10 Essential (primary) hypertension; B20 Human immunodeficiency virus [HIV] disease; Z79.899 Other long term (current) drug therapy
CPT/HCPCS: 36415; 71045; 71275; 80053; 80306; 80307; 81003; 81015; 82550; 83690; 84484; 85025; 85379; 93005; 94760; 96361; 96374; J1885; Q9966

== ENCOUNTER 2019-10-03 15:17 | Inpatient (IN) | payer BC ==
[2019-10-03] MEDS ORDERED: Ondansetron PF 4 MG/2 ML Vial ONE (16:04)
[2019-10-03 16:09] LABS: Bacteria/HPF None Seen HPF (None Seen); Bilirubin Negative (Negative); Blood, Urine 1+ (Negative); Clarity Clear (Clear); Glucose, Urine (Dipstick) Greater than 1000 mg/dL (Negative); Leukocyte Negative Leu/uL (Negative); Nitrite Negative (Negative); Protein, Urine (Dipstick) 30 mg/dL (Neg-Trace); Squamous Epithelial 0-3 HPF (0-3); Urobilinogen Normal mg/dL (Less than 2)
[2019-10-03 16:16] LABS: #Basophils 0.1 thou/uL (0.0-0.2); #Eosinphils 0.1 thou/uL (0.0-0.7); #Lymphocytes 2.4 thou/uL (1.20-3.40); #Monocytes 0.7 thou/uL (0.11-0.59); #Neutrophils 5.2 thou/uL (1.40-6.50); %Basophils 0.9 % (0.0-1.0); %Eosinophils 0.8 % (0.0-10.0); %Lymphocytes 28.6 % (21.0-51.0); %Monocytes 7.8 % (0.0-10.0); %Neutrophils 61.9 % (42.0-75.0); Hemoglobin 18.1 g/dL (14.0-18.0); Mean Corpuscular HGB CONC 34.7 g/dL (32.0-36.0); Mean Corpuscular Hemoglobin 29.3 pg (27.0-31.0); Mean Corpuscular Volume 84.5 fL (78.0-98.0); Mean Platelet Volume 8.1 fL (7.4-10.4); Platelet Count 297 thou/uL (130-400); RBC Distribution Width 11.5 % (11.5-14.5); Red Blood Cell (RBC) Count 6.17 mill/uL (4.70-6.10); White Blood Cell (WBC) Count 8.4 thou/uL (4.8-10.8)
[2019-10-03 16:31] LABS: ALT (SGPT) 70 U/L (8-55); AST (SGOT) 36 U/L (5-34); Albumin 4.7 g/dL (3.5-5.0); Alkaline Phosphatase 81 U/L (40-110); Anion Gap 15 mmol/L (10-20); BUN (Urea Nitrogen) 29 mg/dL (8.9-20.6); Calc. Creatinine Clearance 0 mL/min (70-130); Calcium 9.7 mg/dL (7.8-10.44); Carbon Dioxide 17 mmol/L (22-29); Chloride 96 mmol/L (98-107); Estimated GFR-MDRD 52; Globulin 4.2 g/dL (2.4-3.5); Lipase 40 U/L (8-78); Potassium 3.2 mmol/L (3.5-5.1); Protein, Total 8.9 g/dL (6.0-8.3); Sodium 125 mmol/L (136-145)
--- NOTE | 2019-10-03 16:33 | RAD ---
PORTABLE CHEST ONE VIEW: Date: 10-03-19 Time: 4:20 p.m. History: Chest pain, shortness of breath. FINDINGS: Comparison is made with exam of 02-05-19. The heart size is normal. The lungs are expanded without focal areas of consolidation, pneumothoraces or pleural effusions. IMPRESSION: No acute process. POS: [facility]
[2019-10-03 16:43] LABS: Glucose 674 mg/dL (70-105)
[2019-10-03 17:15] LABS: Phosphorus 3.7 mg/dL (2.3-4.7)
[2019-10-03] MEDS ORDERED: Insulin Regular 100 units/100 ml in NS IVPB SCH (17:30)
[2019-10-03] MEDS ORDERED: Potassium Chloride 40 MEQ in Sodium Chloride 0.9% 250 ML 250 ML IVPB SCH (17:30)
[2019-10-03] MEDS ORDERED: CCU Insulin Drip FS SCH (18:32)
[2019-10-03] MEDS ORDERED: HUMULIN R 100 UNITS in Sodium Chloride 0.9% 100 ML IVPB SCH (19:00)
--- NOTE | 2019-10-03 19:37 | HP ---
PRIMARY CARE PROVIDER: Dr. David Mao in [place], [place] at [facility]. CHIEF COMPLAINT: Nausea and vomiting. HISTORY OF PRESENT ILLNESS: The patient is a pleasant 34-year-old gentleman who was seen at [facility] on October 03, 2019. He was visiting this area from [place]. He did not bring his glucometer. He reports that he was on 70 units of long-acting insulin. Over the last couple of months, he has had difficulty waking up at times. His mother had to pour water on him to wake him up. Because of that, he stopped taking Lantus insulin because he was worried about hypoglycemia. He was taking his short-acting insulin. Two days ago, he developed nausea and vomiting. He reports vomiting twice. He also reports 10 episodes of diarrhea. He reports having abdominal pain at that time. He reports that it was sharp, but is unable to characterize it further. He also reports having left-sided chest discomfort, nonradiating, accompanied by vomiting. His oral intake was decreased. He stopped taking Humalog insulin 2 days ago. He presented to the emergency room because of ongoing nausea. He also reports thirst and generalized weakness. REVIEW OF SYSTEMS: All systems were reviewed and found to be negative except for the pertinent positives mentioned above. PAST MEDICAL HISTORY: Diabetes mellitus type 1, HIV infection, hypertension, syphilis, cirrhosis, and hepatitis C. PAST SURGICAL HISTORY: Appendectomy. SOCIAL HISTORY: The patient denies tobacco use, alcohol use, or recreational drug use. FAMILY HISTORY: Cerebrovascular accident in his mother. ALLERGIES: NO KNOWN DRUG ALLERGIES. CURRENT MEDICATIONS: Lantus insulin and Humalog insulin, although as mentioned earlier, he is not taking these medications. PHYSICAL EXAMINATION: GENERAL: On examination, Mr. Dowling is awake and alert, not in acute distress. VITAL SIGNS: Blood pressure is 123/87, pulse 100, respiratory rate 18, and oxygen saturation 99% on room air. He is afebrile. When he presented to the emergency room, his pulse was 123. EYES: No scleral icterus. No conjunctival pallor. ENT: Dry mucosal membranes. No oropharyngeal erythema or exudates. NECK: Supple, nontender, trachea is midline. RESPIRATORY: Accessory muscles of breathing are not active. Chest wall movements are symmetric bilaterally. LUNGS: Clear to auscultation without wheeze, rhonchi, or crepitations. CARDIOVASCULAR: S1 and S2 are heard, tachycardic and regular. Peripheral pulses palpable. No carotid bruit. ABDOMEN: Soft, nontender, bowel sounds are heard. NEUROLOGIC: Cranial nerves 2 through 12 are intact. MUSCULOSKELETAL: Power is 5/5 in all 4 extremities. SKIN: Multiple tattoos. LYMPHATIC: No cervical lymphadenopathy. PSYCHIATRIC: Normal mood, normal affect. The patient is oriented to person, place, and time. LABORATORY DATA: Mr. Dowling's labs and investigations were reviewed. I reviewed his electrocardiogram, which shows sinus tachycardia, no ST changes to suggest an acute coronary syndrome. I also reviewed his chest x-ray, which does not show any pulmonary infiltrates. He has decreased sodium of 125, sodium corrected for glucose is 674. Potassium is mildly decreased at 3.2. Blood urea nitrogen and creatinine are elevated at 29 and 1.54 respectively. Last known creatinine was 0.93 on February 05, 2019. Total bilirubin is elevated at 2.0, it was 1.3 on February 05, 2019. AST and ALT are elevated at 36 and 70 respectively. He has a history of chronic transaminitis. Lipase is normal. Phosphorus is normal. Magnesium is normal. Urinalysis is negative for nitrite and leukocyte esterase, positive for glucose, protein, ketones and blood. Beta-hydroxybutyrate is mildly elevated at 0.6. Anion gap is normal at 15. Carbon dioxide is slightly decreased at 17. ASSESSMENT AND PLAN: Mr. Dowling is a pleasant 34-year-old gentleman who was seen at [facility] on October 03, 2019. His problem list includes: 1. Uncontrolled hyperglycemia: Mr. Dowling is presenting with uncontrolled hyperglycemia in the context of noncompliance with his insulin. He will be admitted to the hospital for further management. At this point in time, he does not meet the criteria for diabetic ketoacidosis. He will be treated with the CCU insulin drip protocol. 2. Dehydration: He has severe dehydration. We will provide intravenous hydration and reassess. 3. Hyponatremia: Pseudohyponatremia, corrected sodium for glucose is 134. We will continue to monitor lytes. 4. Acute kidney injury: We will provide intravenous hydration, correct glucose and recheck. 5. Hepatitis C: Chronic, stable. Many thanks for allowing me to participate in your patient's care. Please feel free to contact me with any questions or concerns. LEVEL OF RISK: High. LEVEL OF COMPLEXITY: High. Job ID: [id number]
[2019-10-03 19:46] LABS: Hemoglobin A1c Greater than 14.0 % (4.0-6.0)
[2019-10-03] MEDS: NS 0.9% w/ 20 MEQ KCL 1,000 ML/1,000 ML BAG IV SCH (21:05)
[2019-10-04] MEDS: NS 0.9% w/ 20 MEQ KCL 1,000 ML/1,000 ML BAG IV SCH ×4 (04:01→23:20)
[2019-10-04 05:14] LABS: #Basophils 0.1 thou/uL (0.0-0.2); #Eosinphils 0.2 thou/uL (0.0-0.7); #Lymphocytes 3.7 thou/uL (1.20-3.40); #Monocytes 0.8 thou/uL (0.11-0.59); #Neutrophils 3.4 thou/uL (1.40-6.50); %Basophils 0.6 % (0.0-1.0); %Lymphocytes 45.5 % (21.0-51.0); %Monocytes 9.4 % (0.0-10.0); %Neutrophils 42.5 % (42.0-75.0); Mean Corpuscular HGB CONC 34.6 g/dL (32.0-36.0); Mean Corpuscular Hemoglobin 29.2 pg (27.0-31.0); Mean Corpuscular Volume 84.3 fL (78.0-98.0); Mean Platelet Volume 7.6 fL (7.4-10.4); Platelet Count 240 thou/uL (130-400); RBC Distribution Width 11.4 % (11.5-14.5); White Blood Cell (WBC) Count 8.1 thou/uL (4.8-10.8)
[2019-10-04 05:30] LABS: Anion Gap 9 mmol/L (10-20); BUN (Urea Nitrogen) 22 mg/dL (8.9-20.6); Calc. Creatinine Clearance 118 mL/min (70-130); Calcium 8.6 mg/dL (7.8-10.44); Carbon Dioxide 22 mmol/L (22-29); Chloride 107 mmol/L (98-107); Estimated GFR-MDRD Greater than 90; Glucose 306 mg/dL (70-105); Potassium 3.1 mmol/L (3.5-5.1); Sodium 135 mmol/L (136-145)
[2019-10-04] MEDS ORDERED: Potassium Chloride 20 MEQ TAB PO SCH (06:00)
[2019-10-04] MEDS ORDERED: FLU VACC QS2019-20(6MOS UP)/PF 60 MCG/0.5 ML SYRINGE IM ONE (09:00)
[2019-10-04] MEDS ORDERED: Insulin Glargine 30 UNITS in Pre-Filled Syringe 1 EACH SC SCH (11:15)
[2019-10-04] MEDS: Saccharomyces boulardii 250 MG CAP PO SCH (11:56)
[2019-10-04] MEDS ORDERED: Dextrose 5% in Water 1,000 ML IV PRN (14:50)
[2019-10-04] MEDS ORDERED: Dextrose 50% Abboject 50 ML SYRINGE SLOW IVP PRN (14:50)
--- NOTE | 2019-10-04 14:51 | PDOC.HOSPP ---
- Subjective Encounter Date: 10/04/19 Encounter Time: 09:20 Subjective: Pt seen for followup re: uncontrolled hyperglycemia. Feels better. - Objective Vital Signs & Weight: Vital Signs (12 hours) Temp Pulse Ox 10/04/19 11:35 97.6 F 10/04/19 08:00 100 10/04/19 07:48 97.9 F 10/04/19 04:00 98.9 F Weight Admit Weight 159 lb 9 oz Weight 159 lb 9 oz Most Recent Monitor Data Heart Rate from ECG 71 NIBP 102/64 NIBP BP-Mean 76 Respiration from ECG 16 SpO2 100 I&O: 10/03/19 10/04/19 10/05/19 06:59 06:59 06:59 Intake Total 2310 Output Total 200 Balance 2110 Result Diagrams: 10/04/19 04:44 10/04/19 04:44 Additional Labs: Accuchecks 10/04/19 10/04/19 10/04/19 14:11 11:17 10:06 POC Glucose 197 H 191 H 135 H 10/04/19 10/04/19 10/04/19 09:02 07:20 06:03 POC Glucose 111 H 213 H 246 H 10/04/19 10/04/19 10/04/19 05:13 02:14 01:00 POC Glucose 239 H 173 H 139 H 10/03/19 10/03/19 10/03/19 23:20 22:01 20:43 POC Glucose 207 H 226 H 279 H 10/03/19 17:55 POC Glucose Greater than 550 H* Labs and MARs reviewed by me EKG Reviewed by me: Yes (Tele; NSR) Hospitalist ROS - Review of Systems Cardiovascular: denies: chest pain, palpitations, orthopnea, paroxysmal noc. dyspnea, edema, light headedness Gastrointestinal: reports: diarrhea. denies: nausea, vomiting, abdominal pain, constipation, melena, hematochezia - Medication Medications: Active Medications Generic Name Dose Route Start Last Admin Trade Name Freq PRN Reason Stop Dose Admin Potassium Chloride/Sodium Chloride 1,000 ml in 1,000 mls @ 125 mls/hr 18:45 10/04/19 11:56 Ns 0.9% W/ 20 Meq Kcl IV 1,000 mls .Q8H ALEX Administration Saccharomyces Boulardii 250 mg 10/04/19 11:00 10/04/19 11:56 Florastor PO 250 mg Q24HR ALEX Administration Sodium Chloride 10 ml 10/03/19 21:00 10/04/19 09:01 Flush - Normal Saline IVF 10 ml Q12HR ALEX Administration - Exam General Appearance: NAD Eye: anicteric sclera ENT: moist mucosa Neck: supple Heart: RRR Respiratory: CTAB, no rales Gastrointestinal: soft, non-tender Extremities: no edema Skin - other findings: tattoos Neurological: no weakness Psychiatric: normal affect, normal behavior Hosp A/P (1) Diabetes type 2, uncontrolled Code(s): E11.65 - TYPE 2 DIABETES MELLITUS WITH HYPERGLYCEMIA Status: Acute (2) Hypokalemia Code(s): E87.6 - HYPOKALEMIA Status: Acute (3) Hyponatremia Code(s): E87.1 - HYPO-OSMOLALITY AND HYPONATREMIA Status: Acute (4) HTN (hypertension) Code(s): I10 - ESSENTIAL (PRIMARY) HYPERTENSION Status: Chronic (5) HIV (human immunodeficiency virus infection) Status: Chronic (6) Hepatitis C, chronic Code(s): B18.2 - CHRONIC VIRAL HEPATITIS C Status: Chronic - Plan out of bed/ambulate DC IV insulin, switch to lantyus insulin 30 units daily, add insulin sliding scale. Diabetic diet. Stool negative for C. diff, check cultures. Hyponatremia mild, likely asymptomatic. Replace potassium. HTN controlled.
[2019-10-04] MEDS: HumaLOG 300 UNITS/3 ML VIAL SC PRN ×2 (17:09→20:45)
[2019-10-04] MEDS: Loperamide HCl 2 MG CAP PO PRN (21:23)
[2019-10-05 05:38] LABS: #Eosinphils 0.1 thou/uL (0.0-0.7); #Lymphocytes 3.1 thou/uL (1.20-3.40); #Monocytes 0.5 thou/uL (0.11-0.59); #Neutrophils 2.6 thou/uL (1.40-6.50); %Basophils 0.3 % (0.0-1.0); %Eosinophils 1.2 % (0.0-10.0); %Lymphocytes 49.3 % (21.0-51.0); %Monocytes 8.4 % (0.0-10.0); %Neutrophils 40.9 % (42.0-75.0); Hemoglobin 13.5 g/dL (14.0-18.0); Mean Corpuscular HGB CONC 34.4 g/dL (32.0-36.0); Mean Corpuscular Hemoglobin 29.4 pg (27.0-31.0); Mean Corpuscular Volume 85.4 fL (78.0-98.0); Mean Platelet Volume 7.9 fL (7.4-10.4); Platelet Count 206 thou/uL (130-400); RBC Distribution Width 11.5 % (11.5-14.5); Red Blood Cell (RBC) Count 4.59 mill/uL (4.70-6.10); White Blood Cell (WBC) Count 6.3 thou/uL (4.8-10.8)
[2019-10-05 05:56] LABS: Anion Gap 9 mmol/L (10-20); BUN (Urea Nitrogen) 12 mg/dL (8.9-20.6); Calc. Creatinine Clearance 157 mL/min (70-130); Calcium 8.1 mg/dL (7.8-10.44); Carbon Dioxide 22 mmol/L (22-29); Chloride 107 mmol/L (98-107); Estimated GFR-MDRD Greater than 90; Glucose 279 mg/dL (70-105); Potassium 3.4 mmol/L (3.5-5.1); Sodium 135 mmol/L (136-145)
[2019-10-05] MEDS: HumaLOG 300 UNITS/3 ML VIAL SC PRN ×3 (06:06→20:34)
[2019-10-05] MEDS ORDERED: Potassium Chloride 20 MEQ TAB PO SCH ×2 (08:15→15:00)
[2019-10-05] MEDS: Loperamide HCl 2 MG CAP PO PRN (09:40)
[2019-10-05] MEDS: Saccharomyces boulardii 250 MG CAP PO SCH (09:40)
[2019-10-05] MEDS: Insulin Glargine 30 UNITS in Pre-Filled Syringe SC SCH (09:41)
[2019-10-05] MEDS: NS 0.9% w/ 20 MEQ KCL 1,000 ML/1,000 ML BAG IV SCH ×2 (09:41→19:13)
[2019-10-05] MEDS ORDERED: Loperamide HCl 2 MG CAP PO PRN (14:50)
--- NOTE | 2019-10-05 14:51 | PDOC.HOSPP ---
- Subjective Encounter Date: 10/05/19 Encounter Time: 09:40 Subjective: Pt seen for followup re: diarrhea. c/o ongoing diarrhea. No fevers. no abdominal pain. - Objective Vital Signs & Weight: Vital Signs (12 hours) Temp Pulse Resp Pulse Ox 10/05/19 11:37 97.6 F 10/05/19 07:48 100 10/05/19 07:16 97.6 F 10/05/19 03:45 98.3 F 69 18 98 Weight Admit Weight 159 lb 9 oz Weight 167 lb 8 oz Most Recent Monitor Data Heart Rate from ECG 82 NIBP 124/73 NIBP BP-Mean 90 Respiration from ECG 21 SpO2 100 I&O: 10/04/19 10/05/19 10/06/19 06:59 06:59 06:59 Intake Total 2310 5000 Output Total 200 Balance 2110 5000 Result Diagrams: 10/05/19 05:15 10/05/19 05:15 Additional Labs: Accuchecks 10/05/19 10/05/19 10/04/19 10:37 06:07 20:48 POC Glucose 212 H 253 H 258 H 10/04/19 10/04/19 10/03/19 16:53 12:01 19:32 POC Glucose 256 H 161 H 359 H Labs and MARs reviewed by co Hospitalist ROS - Review of Systems Constitutional: denies: fever, chills, sweats, weakness, malaise Gastrointestinal: reports: diarrhea. denies: nausea, vomiting, abdominal pain, constipation, melena, hematochezia - Medication Medications: Active Medications Generic Name Dose Route Start Last Admin Trade Name Freq PRN Reason Stop Dose Admin Potassium Chloride/Sodium Chloride 1,000 ml in 1,000 mls @ 125 mls/hr 18:45 10/05/19 09:41 Ns 0.9% W/ 20 Meq Kcl IV 1,000 mls .Q8H ALEX Administration Insulin Glargine 30 units/ 0.3 mls @ 0 mls/hr 10/05/19 09:00 10/05/19 09:41 Miscellaneous Medication SC 0.3 mls QAM ALEX Administration Insulin Human Lispro 0 units 10/04/19 14:50 10/05/19 06:06 Humalog SC 4 unit .MILD SLIDING SCALE PRN Administration Mild Correctional Scale Saccharomyces Boulardii 250 mg 10/04/19 11:00 10/05/19 09:40 Florastor PO 250 mg Q24HR ALEX Administration Sodium Chloride 10 ml 10/03/19 21:00 10/05/19 09:42 Flush - Normal Saline IVF 10 ml Q12HR ALEX Administration - Exam General Appearance: NAD Eye: anicteric sclera ENT: moist mucosa Neck: supple Heart: RRR Respiratory: CTAB Gastrointestinal: soft, non-tender, normal bowel sounds Extremities: no clubbing Neurological: no weakness Psychiatric: normal affect, normal behavior Hosp A/P (1) Diarrhea Code(s): R19.7 - DIARRHEA, UNSPECIFIED Status: Acute (2) Diabetes type 2, uncontrolled Code(s): E11.65 - TYPE 2 DIABETES MELLITUS WITH HYPERGLYCEMIA Status: Acute (3) Hypokalemia Code(s): E87.6 - HYPOKALEMIA Status: Acute (4) Hyponatremia Code(s): E87.1 - HYPO-OSMOLALITY AND HYPONATREMIA Status: Acute (5) HTN (hypertension) Code(s): I10 - ESSENTIAL (PRIMARY) HYPERTENSION Status: Chronic (6) HIV (human immunodeficiency virus infection) Status: Chronic (7) Hepatitis C, chronic Code(s): B18.2 - CHRONIC VIRAL HEPATITIS C Status: Chronic - Plan out of bed/ambulate Continue lantus insulin 30 units daily, add insulin sliding scale. Diabetic diet. Stool negative for C. diff, no evidence of other infection in stool, start Imodium. Hyponatremia mild, likely asymptomatic. Replace potassium. HTN controlled. Awaiting bed on medical floor.
[2019-10-05] MEDS ORDERED: Loperamide HCl 2 MG CAP PO SCH (15:00)
[2019-10-06 04:58] LABS: #Basophils 0.1 thou/uL (0.0-0.2); #Eosinphils 0.1 thou/uL (0.0-0.7); #Lymphocytes 3.3 thou/uL (1.20-3.40); #Monocytes 0.5 thou/uL (0.11-0.59); #Neutrophils 3.3 thou/uL (1.40-6.50); %Basophils 0.8 % (0.0-1.0); %Eosinophils 1.6 % (0.0-10.0); %Lymphocytes 44.9 % (21.0-51.0); %Monocytes 7.2 % (0.0-10.0); %Neutrophils 45.4 % (42.0-75.0); Hemoglobin 13.6 g/dL (14.0-18.0); Mean Corpuscular HGB CONC 34.4 g/dL (32.0-36.0); Mean Corpuscular Hemoglobin 29.9 pg (27.0-31.0); Mean Corpuscular Volume 86.8 fL (78.0-98.0); Mean Platelet Volume 7.8 fL (7.4-10.4); Platelet Count 212 thou/uL (130-400); RBC Distribution Width 11.5 % (11.5-14.5); Red Blood Cell (RBC) Count 4.56 mill/uL (4.70-6.10); White Blood Cell (WBC) Count 7.3 thou/uL (4.8-10.8)
[2019-10-06 05:17] LABS: Anion Gap 10 mmol/L (10-20); BUN (Urea Nitrogen) 8 mg/dL (8.9-20.6); Calc. Creatinine Clearance 143 mL/min (70-130); Calcium 8.7 mg/dL (7.8-10.44); Carbon Dioxide 25 mmol/L (22-29); Chloride 105 mmol/L (98-107); Estimated GFR-MDRD Greater than 90; Glucose 331 mg/dL (70-105); Potassium 4.2 mmol/L (3.5-5.1); Sodium 136 mmol/L (136-145)
[2019-10-06] MEDS: NS 0.9% w/ 20 MEQ KCL 1,000 ML/1,000 ML BAG IV SCH ×2 (06:02→16:12)
[2019-10-06] MEDS: HumaLOG 300 UNITS/3 ML VIAL SC PRN ×2 (06:49→16:14)
[2019-10-06] MEDS: Insulin Glargine 30 UNITS in Pre-Filled Syringe SC SCH (09:00)
[2019-10-06] MEDS ORDERED: Acetaminophen 325 MG/10.15 ML UDCUP PO PRN (09:27)
[2019-10-06 11:16] VITALS: BP 103/61; TEMP 98.4
[2019-10-06 12:12] VITALS: BMI 22.1
[2019-10-06] MEDS ORDERED: Acetaminophen 325 MG TAB PO PRN (12:21)
[2019-10-06] MEDS: Saccharomyces boulardii 250 MG CAP PO SCH (16:14)
--- NOTE | 2019-10-07 08:26 | DIS ---
DATE OF ADMISSION: 10/03/2019 DATE OF DISCHARGE: 10/06/2019 PRIMARY CARE PROVIDER: Dr. Stephan Mao. DISCHARGE DIAGNOSES: 1. Diabetes mellitus type 2 with uncontrolled hyperglycemia. 2. Diarrhea. 3. Hypokalemia. 4. Hyponatremia. 5. Severe dehydration. CONDITION OF PATIENT ON THE DAY OF DISCHARGE: Stable. I assessed Mr. Dowling on the day of discharge. He denies any chest pain or shortness of breath. Vital signs are stable. S1 and S2 are heard, regular. Lungs are clear to auscultation bilaterally. DISCHARGE MEDICATIONS: 1. Lantus insulin 30 units daily. 2. Genvoya one tablet daily. HOSPITAL COURSE: Mr. Dowling is a pleasant 34-year-old gentleman who was admitted to [facility] on 10/03/2019, for uncontrolled hyperglycemia in the context of medication noncompliance. He was also dehydrated. He improved with intravenous fluids and intravenous insulin. Hemoglobin A1c was greater than 14.0. Urine culture grew beta-hemolytic Streptococcus, but he did not have any urinary symptoms. He had diarrhea. Clostridium difficile test was negative. He improved with Imodium. He is being discharged home in a stable condition. He has been advised to check his blood sugars 3 times a day and show the readings to his primary care provider. He has also been advised to be compliant with his medications. Many thanks for allowing me to participate in your patient's care. Please feel free to contact me with any questions or concerns. On the day of discharge, he has white count of 7300, hemoglobin 13.6, platelet count 212,000, normal electrolytes and normal creatinine. DISCHARGE DESTINATION: Home. TIME SPENT: Total amount of time spent coordinating this discharge: 32 minutes. Job ID: [id number]
== END 2019-10-06 16:30 | disposition home or self-care (01) | DRG 638 ==
LOC: ERS 15:17 → IMCU/EMU 19:27 → SJJU 10-05 22:59
PROVIDERS: ADMIT Internal Medicine; ATTEND Internal Medicine
DX: E10.65 Type 1 diabetes mellitus with hyperglycemia (principal); N17.9 Acute kidney failure, unspecified; E87.1 Hypo-osmolality and hyponatremia; Z23 Encounter for immunization; Z21 Asymptomatic human immunodeficiency virus [HIV] infection status; I10 Essential (primary) hypertension; K74.60 Unspecified cirrhosis of liver; B18.2 Chronic viral hepatitis C; E86.0 Dehydration; E87.6 Hypokalemia; Z90.49 Acquired absence of other specified parts of digestive tract; Z79.4 Long term (current) use of insulin; Z91.14 Patient's other noncompliance with medication regimen; K31.84 Gastroparesis; E10.43 Type 1 diabetes mellitus with diabetic autonomic (poly)neuropathy
CPT/HCPCS: 36415; 36416; 71045; 80048; 80053; 81003; 81015; 82010; 83036; 83690; 83735; 84100; 84484; 85025; 87045; 87046; 87086; 87324; 87427; 87449; 90471; 90686; 93005; 96361; 96365; 96366; 96375; G0008; J1815; J2405; J3480; J3490; J7050

== ENCOUNTER 2020-12-31 20:59 | Emergency (ER) | payer BC, SELFPAY ==
--- NOTE | 2020-12-31 21:52 | RAD ---
EXAM: CHEST ONE VIEW HISTORY: Chest pain. COMPARISON: 10/03/2019 FINDINGS: The cardiac silhouette and pulmonary vasculature are within normal limits. The lungs are clear. Tiny metallic density overlies the lower mediastinum and thoracic spine. This could be related to overlying artifact. Metallic foreign body would be difficult to entirely exclude. Metallic density al so overlies the lower neck in the midline which also could be related to clothing artifact. IMPRESSION: 1. Tiny metallic density overlying the lower mediastinum and thoracic spine. A metallic density also overlies the midline lower neck. This metallic densities may be related to overlying artifact, but metallic foreign bodies cannot be excluded, and clinical correlation is recommended. 2. No acute cardiopulmonary process.
[2020-12-31 22:03] LABS: #Basophils 0.1 thou/uL (0.0-0.2); #Eosinphils 0.1 thou/uL (0.0-0.7); #Lymphocytes 1.9 thou/uL (1.20-3.40); #Monocytes 0.5 thou/uL (0.11-0.59); #Neutrophils 3.4 thou/uL (1.40-6.50); %Basophils 0.9 % (0.0-1.0); %Eosinophils 1.1 % (0.0-10.0); %Lymphocytes 32.2 % (21.0-51.0); %Monocytes 8.8 % (0.0-10.0); Hemoglobin 15.2 g/dL (14.0-18.0); Mean Corpuscular HGB CONC 33.5 g/dL (32.0-36.0); Mean Corpuscular Hemoglobin 28.6 pg (27.0-31.0); Mean Corpuscular Volume 85.3 fL (78.0-98.0); Mean Platelet Volume 7.2 fL (7.4-10.4); Platelet Count 255 thou/uL (130-400); RBC Distribution Width 11.4 % (11.5-14.5); Red Blood Cell (RBC) Count 5.31 mill/uL (4.70-6.10)
[2020-12-31 22:24] LABS: ALT (SGPT) 80 U/L (8-55); AST (SGOT) 41 U/L (5-34); Albumin 3.9 g/dL (3.5-5.0); Alkaline Phosphatase 58 U/L (40-110); Anion Gap 11 mmol/L (10-20); BUN (Urea Nitrogen) 13 mg/dL (8.9-20.6); Bilirubin, Total 1.2 mg/dL (0.2-1.2); Calc. Creatinine Clearance 0 mL/min (70-130); Calcium 9.3 mg/dL (7.8-10.44); Carbon Dioxide 25 mmol/L (22-29); Chloride 101 mmol/L (98-107); Globulin 4.4 g/dL (2.4-3.5); Glucose 357 mg/dL (70-105); Protein, Total 8.3 g/dL (6.0-8.3); Sodium 133 mmol/L (136-145)
[2020-12-31] MEDS ORDERED: Ketorolac Tromethamine 30 MG/ML VIAL ONE (23:44)
--- NOTE | 2021-01-05 16:15 | EKG ---
Test Reason : Blood Pressure : / mmHG Vent. Rate : 088 BPM Atrial Rate : 088 BPM P-R Int : 142 ms QRS Dur : 086 ms QT Int : 374 ms P-R-T Axes : 083 078 050 degrees QTc Int : 452 ms Normal sinus rhythm Possible Left atrial enlargement Borderline ECG Confirmed by BAL SHEIKH DO ([id number]), editor [employer] photograph GIA CALDWELL ([id number]) on 01/05/2021 4:15:50 PM Referred By: Confirmed By:BAL SHEIKH DO
== END 2020-12-31 23:57 | disposition home or self-care (01) ==
LOC: ERS 20:59
DX: S39.012A Strain of muscle, fascia and tendon of lower back, initial encounter (principal); R07.89 Other chest pain; E10.9 Type 1 diabetes mellitus without complications; I10 Essential (primary) hypertension; B20 Human immunodeficiency virus [HIV] disease; Z79.899 Other long term (current) drug therapy
CPT/HCPCS: 71045; 80053; 84484; 85025; 93005; 96372; J1885